=== PATIENT | female | born 1990 | race Caucasian/White ===

== ENCOUNTER 2019-09-07 01:02 | Emergency (ER) | payer MEDICAID, SELFPAY ==
[2019-09-07 01:08] VITALS: BP 126/79; PULSE 108; RESP 18; TEMP 37.1; O2SAT 100; BMI 35.4
--- NOTE | 2019-09-07 01:28 | ED_ITS ---
Entered by Lisbeth Alberts, acting as scribe for Estrada Head MD Sep 07, 2019 01:02 HPI - Extremity Problem General: Chief complaint: Extremity Problem,Nontraumatic Stated complaint: swollen left foot Time Seen by Provider: 09/07/19 01:22 Source: patient Mode of arrival: ambulatory History of Present Illness: HPI Narrative: 29 y/o female presents to the ED with complaint of left lower extremity pain. Pt states she had surgery to repair a broken bone in 2014. She started having pain and swelling today. The pt has notable edema, redness and tenderness. The extremity is warm to the touch. She states she does not wear shoes so she gets pressure ulcers, regularly. MD Complaint: extremity pain and extremity swelling Pain Consistency: constant Location: left and lower extremity Exacerbating factors: weight bearing, walking and palpation Associated symptoms: Reports rash; Deny chest pain Review of Systems Const: Reports: chills; Denies: body aches or change in appetite Eyes: Denies: blurry vision or eye discomfort ENMT: Denies: throat pain or dental pain Card: Denies: chest pain Resp: Denies: shortness of breath GI: Denies: abdominal pain, nausea, vomiting or diarrhea : Denies: painful urination Musc: Denies: neck pain or back pain Skin/Breast: Reports: rash, redness, skin tenderness and skin swelling Neuro: Denies: headache Morris/Lymph: Denies: easy bruising All/Imm: Denies: hives PFSH ED PFSH: Social History Smoking and tobacco status: current every day smoker Female Reproductive History: Date of last menstrual period: 08/10/19 Physical Exam HENMT: COMMON NORMALS: normocephalic and head/scalp atraumatic HEAD & SCALP: normocephalic and atraumatic Eye: COMMON NORMALS: PERRL and EOMs intact bilaterally PUPIL: Yes PERRL Neck/C-Spine: COMMON NORMALS: full ROM and supple Chest: COMMONS NORMALS: inspection of chest normal and palpation of chest normal Resp: COMMON NORMALS: normal respiratory effort, no retractions, no use of accessory muscles and clear to auscultation bilaterally AUSCULTATION: clear to auscultation bilaterally Cardio: COMMON NORMALS: regular rate, regular rhythm and no murmurs RATE: regular rate RHYTHM: regular rhythm GI: COMMON NORMALS: normal to inspection, nondistended, normoactive bowel sounds, soft to palpation, non-tender and no masses PALPATION: Yes soft Extremity: COMMON NORMALS: normal to inspection and full ROM GENERAL: Yes calf tenderness and Yes edema LEFT LOWER EXTREMITY: Yes ankle joint and Yes foot & digits Neuro: COMMON NORMALS: moves all extremities and no focal motor deficits Psych: COMMON NORMALS: mental status grossly normal, thought process normal and cooperative THOUGHT PROCESS: normal thought process Skin: GENERAL SKIN EXAM: dry skin and erythema Course Vital Signs: Vital signs: Vital Signs Temperature 98.7 F 09/07/19 01:08 Pulse Rate 108 H 09/07/19 01:08 Respiratory Rate 18 09/07/19 01:08 Blood Pressure 126/79 09/07/19 01:08 Pulse Oximetry 100 09/07/19 01:08 MDM - Extremity (Nontraumatic) MDM Narrative: Medical decision making narrative: Patient presents here with foot pain. She does have some slight swelling and erythema to her foot with possible cellulitis. Patient denies stepping on any objects or having any foreign bodies. We will start her on Keflex and she is to follow-up with primary care doctor. Lab Data: Labs: Lab Results 09/07/19 Range/Units 01:45 WBC 6.6 (4.0-10.0) 10^3/ uL RBC 5.17 (4.1-5.3) 10^6/u L Hgb 14.5 (11.5-15.3) g/dL Hct 43.9 (37.0-47.0) % MCV 84.9 (81-99) fL MCH 28.0 (28.0-34.0) pg MCHC 33.0 (30.0-36.0) g/dL RDW 14.6 (12.1-15.1) % Plt Count 219 (130-400) 10^3/c mm MPV 10.3 (7.4-10.4) fL Neut % (Auto) 71.6 % Lymph % (Auto) 12.7 % [place] % (Auto) 12.2 % Eos % (Auto) 2.7 % Baso % (Auto) 0.5 % Neut # (Auto) 4.7 (1.8-7.7) 10^3/u L Lymph # (Auto) 0.8 (0.8-4.8) 10^3/u L [place] # (Auto) 0.8 (0.2-0.9) 10^3/u L Eos # (Auto) 0.2 (0.0-0.8) 10^3/u L Baso # (Auto) 0.0 (0.0-0.1) 10^3/u L Nucleated RBC % (a uto) 0 % Nucleated RBCs # 0.0 /100WBC Imaging Data^: left foot xr: Attestation: I personally reviewed and interpreted this imaging study as follows: My impression: XRay Report Signed Patient: Patriica Hernandez Unit #: [id number] : 1990 Age/Sex: 29 / F ADM Date: 09/07/19 Loc: ER Room/Bed: Attending Dr: Ordering Provider/Ordering MD: Estrada Head MD Date of Service: 09/07/19 Procedure(s): XR foot LT min 3V* [id number] Accession Number(s): [id number] Report Number: [id number] PROCEDURE INFORMATION: Exam: XR Left Foot Complete Exam date and time: 09/07/2019 1:52 AM Age: 29 years old Clinical indication: Edema; No, it is generalized; Prior surgery; Surgery date: 6+ months; Additional info: Injury TECHNIQUE: Imaging protocol: XR Left foot. Views: 3 or more views. COMPARISON: No relevant prior studies available. FINDINGS: Bones/joints: No acute bony findings. Hardware is in place in the visualized tibia. Soft tissues: Subcutaneous edema/soft tissue swelling noted dorsally. A 5 mm x 0.6 mm radio opacity suggested at the soft tissues of lateral plantar aspect raises consideration of foreign body that can be correlated with any history of penetrating injury. XR/XR foot LT min 3V* [id number] IMPRESSION: Soft tissue swelling/subcutaneous edema. No acute bony findings. Findings raising consideration of foreign body at lateral plantar soft tissues that can be correlated as above. Discharge Plan Discharge Patient Disposition: Home, Self-Care Clinical Impression: Cellulitis of left foot Condition: Stable Prescriptions: New Keflex 500 mg capsule 500 mg PO Q6H 7 Days Qty: 28 RF: 0 EC-Naprosyn 500 mg tablet,delayed release (/EC) 500 mg PO BID PRN (Reason: pain) Qty: 20 RF: 0 Discharge Orders: Discharge Order (Routine); Ordered 09/07/19 Ordered By: Estrada Head Discharge Diet: Advance as tolerated Discharge Activity: Resume usual activity Patient Instructions: Cellulitis (ED) Coding Level of Care Code ED Pit Supervisor for Chg Fwd Exam Comprehensive The documentation recorded by the Aristeo altamirano Ashley, accurately reflects the service I personally performed and the decisions made by Sonido rivera Korby, MD Sep 07, 2019 01:02
--- NOTE | 2019-09-07 01:38 | XRR_ITS ---
PROCEDURE INFORMATION: Exam: XR Left Foot Complete Exam date and time: 09/07/2019 1:52 AM Age: 29 years old Clinical indication: Edema; No, it is generalized; Prior surgery; Surgery date: 6+ months; Additional info: Injury TECHNIQUE: Imaging protocol: XR Left foot. Views: 3 or more views. COMPARISON: No relevant prior studies available. FINDINGS: Bones/joints: No acute bony findings. Hardware is in place in the visualized tibia. Soft tissues: Subcutaneous edema/soft tissue swelling noted dorsally. A 5 mm x 0.6 mm radio opacity suggested at the soft tissues of lateral plantar aspect raises consideration of foreign body that can be correlated with any history of penetrating injury. XR/XR foot LT min 3V* [id number] IMPRESSION: Soft tissue swelling/subcutaneous edema. No acute bony findings. Findings raising consideration of foreign body at lateral plantar soft tissues that can be correlated as above.
[2019-09-07 01:49] LABS: Basophils % 0.5 %; Eosinophils # 0.2 10^3/uL (0.0-0.8); Eosinophils % 2.7 %; Hematocrit 43.9 % (37.0-47.0); Hemoglobin 14.5 g/dL (11.5-15.3); Lymphocytes # 0.8 10^3/uL (0.8-4.8); Lymphocytes % 12.7 %; Mean Corpuscular Volume 84.9 fL (81-99); Mean Platelet Volume 10.3 fL (7.4-10.4); Monocytes # 0.8 10^3/uL (0.2-0.9); Monocytes % 12.2 %; Neutrophils # 4.7 10^3/uL (1.8-7.7); Neutrophils % 71.6 %; Nucleated Red Blood Cells % 0 %; Platelet Count 219 10^3/cmm (130-400); Red Blood Count 5.17 10^6/uL (4.1-5.3); Red Cell Distribution Width 14.6 % (12.1-15.1); White Blood Count 6.6 10^3/uL (4.0-10.0)
[2019-09-07] MEDS: HYDROcodone-acetaminophen 7.5-325 mg Tablet 1 TAB PO (03:03)
--- NOTE | 2019-09-07 04:00 | PC.NURSE ---
assessment reviewed and agree
== END 2019-09-07 04:01 | disposition home or self-care (01) ==
PROVIDERS: Emergency Provider Emergency Medicine
DX: L03.116 Cellulitis of left lower limb (principal); F17.200 Nicotine dependence, unspecified, uncomplicated
CPT/HCPCS: 36415; 73630; 85025; 99281; 99283

== ENCOUNTER 2019-09-08 22:34 | Emergency (ER) | payer MEDICAID, SELFPAY ==
--- NOTE | 2019-09-08 22:35 | XR_ITS ---
WS: [id number] XR foot LT min 3V* [id number] REASON FOR EXAM: injury FINDINGS: The phalanges, metatarsals and tarsals show no definite fractures or other dyscrasias. There is postop changes with a plate and multiple screws through the tibia. The lateral projection the calcaneus was normal. No displacement normal appearance of the foot. XR/XR foot LT min 3V* [id number] IMPRESSION: Negative foot for active pathology.
[2019-09-08 23:10] VITALS: BP 141/88; PULSE 102; RESP 16; TEMP 36.9; O2SAT 100; BMI 35.4
[2019-09-09 00:17] VITALS: PULSE 86
--- NOTE | 2019-09-09 00:24 | ED_ITS ---
Entered by Lisbeth Alberts, acting as scribe for Estrada Head MD Sep 08, 2019 22:34 HPI - Extremity Problem General: Chief complaint: Extremity Injury, Lower Stated complaint: left foot injury Time Seen by Provider: 09/09/19 00:19 Source: patient and family Mode of arrival: wheelchair History of Present Illness: HPI Narrative: 29 y/o female presents to the ED with complaint of left foot swelling. Pt states she was seen here yesterday for similar symptoms and placed on abx. She is back to day because she has not had any improvement. Pt states she has an old ankle injury/sx repair around the swollen area. Complaint: extremity pain and extremity swelling Onset (ago): day(s) Pain Consistency: constant Location: left and lower extremity Associated symptoms: Reports rash; Deny chest pain or fever(s) Review of Systems Const: Denies: fever, chills, body aches or change in appetite Eyes: Denies: blurry vision or eye discomfort ENMT: Denies: throat pain or dental pain Card: Denies: chest pain Resp: Denies: shortness of breath GI: Denies: abdominal pain, nausea, vomiting or diarrhea : Denies: painful urination Musc: Denies: neck pain or back pain Skin/Breast: Reports: rash and skin swelling Neuro: Reports: difficulty walking; Denies: headache Psych: Denies: depression Morris/Lymph: Denies: easy bruising All/Imm: Denies: hives PFS ED PFSH: Social History Smoking and tobacco status: current every day smoker Female Reproductive History: Date of last menstrual period: 08/10/19 Physical Exam Const: COMMON NORMALS: no apparent distress, oriented x3 and alert HENMT: COMMON NORMALS: normocephalic and head/scalp atraumatic HEAD & SCALP: normocephalic and atraumatic Eye: COMMON NORMALS: PERRL and EOMs intact bilaterally PUPIL: Yes PERRL Neck/C-Spine: COMMON NORMALS: full ROM and supple Chest: COMMONS NORMALS: inspection of chest normal and palpation of chest normal Resp: COMMON NORMALS: normal respiratory effort, no retractions, no use of accessory muscles and clear to auscultation bilaterally AUSCULTATION: clear to auscultation bilaterally Cardio: COMMON NORMALS: regular rate, regular rhythm and no murmurs RATE: regular rate RHYTHM: regular rhythm GI: COMMON NORMALS: normal to inspection, nondistended, normoactive bowel sounds, soft to palpation, non-tender and no masses PALPATION: Yes soft Extremity: GENERAL: Yes edema (LLE +2) OTHER: Pt states she has not feeling in her left foot and cannot move it. This is her normal, due to a childhood injury. The increased swelling is new. Neuro: COMMON NORMALS: oriented x3 SENSORIUM/ORIENTATION: Yes alert Psych: COMMON NORMALS: thought process normal and cooperative THOUGHT PROCESS: normal thought process Course ED course: 003 Pt refused blood draw Vital Signs: Vital signs: Vital Signs Temperature 98.4 F 09/08/19 23:10 Pulse Rate 86 09/09/19 00:17 Respiratory Rate 16 09/08/19 23:10 Blood Pressure 141/88 09/08/19 23:10 Pulse Oximetry 100 09/08/19 23:10 MDM - Extremity (Nontraumatic) MDM Narrative: Medical decision making narrative: Patient presents here with lower leg edema and slight cellulitis. Patient has no signs of worsening cellulitis no signs of osteomyelitis. She has good distal pulses and ultrasound showed no DVT. She is to Edi wrap and elevate her foot. She is continue antibiotics will place on [place]. She is to follow-up with PCP in 3 to 5 days return to ER if worsening. Imaging Data^: us venous doppler left leg: My impression: read from tech no DVT seen Discharge Plan Discharge Patient Disposition: Home, Self-Care Clinical Impression: Cellulitis of left foot, Swelling of left foot Condition: Stable Prescriptions: New [place] 5-325 mg tablet 1 tab PO Q6H PRN (Reason: pain) Qty: 10 RF: 0 No Action cephalexin [Keflex] 500 mg capsule 500 mg PO Q6H 7 Days Qty: 28 RF: 0 naproxen [EC-Naprosyn] 500 mg tablet,delayed release (DR/EC) 500 mg PO BID PRN (Reason: pain) Qty: 20 RF: 0 Discharge Orders: Discharge Order (Routine); Ordered 09/09/19 Ordered By: Estrada Head Discharge Diet: Advance as tolerated Discharge Activity: Resume usual activity Patient Instructions: Cellulitis (ED) Coding Level of Care Code ED Fulling Machine Operator for Chg Fwd Exam Comprehensive The documentation recorded by the scribAristeo schneider Ashley, accurately reflects the service I personally performed and the decisions made by me, Estrada Head MD Sep 08, 2019 22:34
--- NOTE | 2019-09-09 00:26 | USCV_ITS ---
DavidAzam byersley Age: 29 Gender: F : 1990 Exam Date: 09/09/2019 00:25 Ordering Phys: Estrada Head MD Technologist: Brad Dennison Exam Location: [facility] [place] Indication: LT LEG PAIN AND EDEMA HISTORY: Lower extremity swelling. PROCEDURES: Venous duplex imaging was performed in only the left lower extremity. The following venous structures were evaluated: common femoral vein, profunda vein, proximal portion of the greater saphenous vein, superficial femoral vein, and the popliteal vein. In addition, the posterior tibial and peroneal trunk were evaluated. FINDINGS: Normal 2-D Doppler and augmentation and compressibility throughout the lower extremity venous structures. Additional imaging through the proximal calf veins also reveals no thrombus. Limited evaluation of the greater saphenous vein is patent with no thrombus. CONCLUSIONS No DVT left lower extremity. Dr. Benita Skelton DO (Electronically Signed) Final Date: 09 September 2019 09:30 S
[2019-09-09] MEDS: HYDROcodone-acetaminophen 10-325 mg Tablet 1 TAB PO (00:38)
[2019-09-09 00:59] VITALS: BP 123/82; PULSE 86; RESP 18; O2SAT 97
--- NOTE | 2019-09-10 09:38 | DCPLANNER ---
manager community had message to speak with patient about getting established with a primary care physician. manager community called patient at [phone] and a recording stated that the phone number is not reachable.
== END 2019-09-09 00:59 | disposition home or self-care (01) ==
PROVIDERS: Emergency Provider Emergency Medicine
DX: L03.116 Cellulitis of left lower limb (principal); F17.210 Nicotine dependence, cigarettes, uncomplicated
CPT/HCPCS: 12345; 73630; 93971; 99281; 99283

== ENCOUNTER 2019-11-26 16:39 | Emergency (ER) | payer MEDICAID, SELFPAY ==
[2019-11-26 17:31] VITALS: BP 111/74; PULSE 127; RESP 18; TEMP 36.9; O2SAT 92; BMI 35.4
[2019-11-26 18:07] LABS: Basophils % 0.3 %; Eosinophils # 0.1 10^3/uL (0.0-0.8); Eosinophils % 0.9 %; Hematocrit 36.5 % (37.0-47.0); Hemoglobin 11.7 g/dL (11.5-15.3); Lymphocytes % 9.2 %; Mean Corpuscular HGB Conc 32.1 g/dL (30.0-36.0); Mean Corpuscular Volume 84.1 fL (81-99); Mean Platelet Volume 9.4 fL (7.4-10.4); Monocytes # 0.6 10^3/uL (0.2-0.9); Monocytes % 5.6 %; Neutrophils # 9.4 10^3/uL (1.8-7.7); Neutrophils % 83.6 %; Nucleated Red Blood Cells % 0 %; Platelet Count 408 10^3/cmm (130-400); Red Blood Count 4.34 10^6/uL (4.1-5.3); Red Cell Distribution Width 13.6 % (12.1-15.1); White Blood Count 11.2 10^3/uL (4.0-10.0)
[2019-11-26 18:30] LABS: Alanine Aminotransferase 30 U/L (0-33); Albumin Level 3.4 g/dL (3.5-5.2); Alkaline Phosphatase 93 IU/L (35-105); Anion Gap 15.5 (5-19); Aspartate Amino Transferase 32 U/L (0-32); Blood Urea Nitrogen 8 mg/dL (6-20); Calcium 8.3 mg/dL (8.5-10.5); Carbon Dioxide 26 mmol/L (22-29); Chloride 96 mmol/L (98-107); Globulin 4.2 g/dL (1.3-4.6); Glomerular Filtration Rate 116.6 mL/min (90-130); Glucose 106 mg/dL (65-115); Osmolality Calculated 274 mOsm/kg (285-295); Potassium 3.5 mmol/L (3.5-5.1); Sodium 134 mmol/L (136-145); Total Bilirubin 0.4 mg/dL (0.15-1.2); Total Protein 7.6 g/dL (6.6-8.7)
--- NOTE | 2019-11-26 20:10 | W.ED.GENADLT ---
HPI - General Adult General: Chief complaint: General Medical Stated complaint: multiple complaints Time Seen by Provider: 11/26/19 19:51 Source: patient Mode of arrival: ambulatory Limitations: no limitations History of Present Illness: HPI narrative: Patient comes in today for complaints of exacerbation of cellulitis to her left lower extremity. Patient reports for the last year she has had problems with cellulitis to the foot on and off. Patient reports was seen here last in September and was supposed to have follow-up with primary care but never got the appointment. Patient appears well. Patient appears in no acute distress. 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 Patient had old injury to the left ankle which is made the foot pretty well useless . Patient denies any nausea vomiting or high fevers. Review of Systems General: Reports: 10 or more systems reviewed and unremarkable except in HPI and below Musc: Reports: back pain and extremity pain PFSH ED PFSH: Social History Smoking and tobacco status: current every day smoker Female Reproductive History: Date of last menstrual period: 11/05/19 Physical Exam Const: COMMON NORMALS: no acute distress and patient oriented x3 GENERAL APPEARANCE: cooperative HENMT: COMMON NORMALS: normocephalic, TM's normal bilaterally and Normal external nose present HEAD & SCALP: normal to inspection and normocephalic NOSE: Normal external nose present TYMPANIC MEMBRANE: TM's normal bilaterally MOUTH: Normal oral and palatal mucosa present THROAT: posterior oropharynx normal Eye: GENERAL EYE: appearance normal, both eyes and all related structures Neck/C-Spine: COMMON NORMALS: full ROM Lymph: LYMPHATIC: no lymphadenopathy noted Chest: COMMONS NORMALS: normal inspection of the chest Resp: COMMON NORMALS: normal respiratory effort EFFORT & INSPECTION: Yes able to speak in complete sentences Cardio: COMMON NORMALS: regular rate and regular rhythm RATE: regular rate RHYTHM: regular rhythm GI: COMMON NORMALS: non-tender : COMMON NORMALS: Yes no CVA tenderness BLADDER/KIDNEY EXAM: Yes no CVA tenderness Back/Pelvis: COMMON NORMALS: no CVA tenderness and thoracic and lumbar spine normal to inspection Extremity: NARRATIVE EXTREMITY EXAM: Erythema is noted to the left lower extremity extending up to mid calf. Pulses are intact. Patient has slow capillary refill to the lower extremity. Neuro: COMMON NORMALS: patient oriented x3 and moves all extremities Psych: COMMON NORMALS: mental status grossly normal and cooperative Skin: COMMON NORMALS: no rashes or lesions noted GENERAL SKIN EXAM: no rashes or lesions noted Course Vital Signs: Vital signs: Vital Signs Temperature 98.5 F 11/26/19 17:31 Pulse Rate 127 H 11/26/19 17:31 Respiratory Rate 18 11/26/19 17:31 Blood Pressure 111/74 11/26/19 17:31 Pulse Oximetry 92 11/26/19 17:31 MDM - General Adult MDM Narrative: Medical decision making narrative: Patient comes in for complaints of low back pain, cellulitis to the left lower extremity, and some changes in urinary pattern. 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 Exam notes redness and some mild swelling to the left lower extremity. Review of the previous ultrasounds noted no venous occlusion and patient reports that there is no significant change. We will go ahead today and retreat for the cellulitis and hopefully be able to get patient with follow-up appointments for further treatment and evaluation of this apparently chronic condition. Lab Data: Labs: Lab Results 11/26/19 11/26/19 Range/Units 17:53 17:53 WBC 11.2 H (4.0-10.0) 10^3/ uL RBC 4.34 (4.1-5.3) 10^6/u L Hgb 11.7 (11.5-15.3) g/dL Hct 36.5 L (37.0-47.0) % MCV 84.1 (81-99) fL MCH 27.0 L (28.0-34.0) pg MCHC 32.1 (30.0-36.0) g/dL RDW 13.6 (12.1-15.1) % Plt Count 408 H (130-400) 10^3/c mm MPV 9.4 (7.4-10.4) fL Neut % (Auto) 83.6 % Lymph % (Auto) 9.2 % [place] % (Auto) 5.6 % Eos % (Auto) 0.9 % Baso % (Auto) 0.3 % Neut # (Auto) 9.4 H (1.8-7.7) 10^3/u L Lymph # (Auto) 1.0 (0.8-4.8) 10^3/u L [place] # (Auto) 0.6 (0.2-0.9) 10^3/u L Eos # (Auto) 0.1 (0.0-0.8) 10^3/u L Baso # (Auto) 0.0 (0.0-0.1) 10^3/u L Nucleated RBC % (a uto) 0 % Nucleated RBCs # 0.0 /100WBC Sodium 134 L (136-145) mmol/L Potassium 3.5 (3.5-5.1) mmol/L Chloride 96 L (98-107) mmol/L Carbon Dioxide 26 (22-29) mmol/L Anion Gap 15.5 (5-19) BUN 8 (6-20) mg/dL Creatinine 0.6 (0.5-0.9) mg/dL GFR Calculation 116.6 (90-130) mL/min Glucose 106 (65-115) mg/dL Calculated Osmolal ity 274 L (285-295) mOsm/k g Calcium 8.3 L (8.5-10.5) mg/dL Total Bilirubin 0.4 (0.15-1.2) mg/dL AST 32 (0-32) U/L ALT 30 (0-33) U/L Alkaline Phosphata se 93 (35-105) IU/L Total Protein 7.6 (6.6-8.7) g/dL Albumin 3.4 L (3.5-5.2) g/dL Globulin 4.2 (1.3-4.6) g/dL Discharge Plan Discharge Patient Disposition: Home, Self-Care Clinical Impression: Cellulitis Qualifiers: Site of cellulitis: extremity Site of cellulitis of extremity: lower extremity Laterality: left Qualified Code(s): L03.116 - Cellulitis of left lower limb Condition: Stable Prescriptions: New cephalexin 500 mg capsule 500 mg PO QID 10 Days Qty: 40 RF: 0 hydrocodone-acetaminophen 5-325 mg tablet 1 tab PO Q6H PRN (Reason: pain) Qty: 10 RF: 0 naproxen 500 mg tablet 500 mg PO BID Qty: 20 RF: 0 No Action naproxen [EC-Naprosyn] 500 mg tablet,delayed release (DR/EC) 500 mg PO BID PRN (Reason: pain) Qty: 20 RF: 0 [place] 5-325 mg tablet 1 tab PO Q6H PRN (Reason: pain) Qty: 10 RF: 0 Discharge Orders: Discharge Order (Routine); Ordered 11/26/19 Ordered By: Osman Hurtado Discharge Diet: Usual diet Discharge Activity: Increase activity as tolerated Patient Instructions: Cellulitis (ED) Activity Restrictions/Additional Instructions: Activity as tolerated. Try to elevate left extremity as much as possible. Use antibiotics as directed. Drink plenty of water with medications. Return to the ER for worsening symptoms such as high fever or worsening pain. Follow-up with primary care as directed by case management. Contact the ER charge nurse if you have not heard from case planner by Friday next week. Coding Level of Care Code ED Neurodiagnostic Technician for Joao Rodriguez
[2019-11-26] MEDS: HYDROcodone-acetaminophen 7.5-325 mg Tablet 1 TAB PO (20:15)
[2019-11-26] MEDS: ketorolac 30 mg/mL INJ IM (20:16)
[2019-11-26] MEDS: cefTRIAXone 1,000 mg SDV 1000 MG IM (20:19)
[2019-11-26] MEDS: lidocaine 1% INJ 20 mL 2.1 ML IV (20:20)
[2019-11-26 20:39] VITALS: BP 120/78; PULSE 100; RESP 18; O2SAT 98
--- NOTE | 2019-11-30 10:04 | DCPLANNER ---
Addendum entered by Seble Maier 11/30/19 14:46: Patient called called watch caser and stated that she did need a primary care physician. fill manager called the office of Dr. Ayala, spoke with Deyanira, a follow up appointment was scheduled for November at 2:45 with GARMENT MANUFACTURER, Rina Kyle. fill manager called patient and informed patient of the scheduled appointment. Addendum entered by Seble Maier 11/30/19 14:32: Pat from ortho called watch caser and stated that after physician reviewed patients information, that patient is to follow up with primary care physician. If after seeing primary care physician, than patients primary care can refer patient to ortho. Addendum entered by Seble Maier 11/30/19 11:35: fill manager also had a message to speak with patient about getting established with a primary care physician. fill manager called [phone], unable to speak with patient at this time, and unable to leave a voicemail due to no voicemail box set up. Original Note: fill manager had message to schedule a follow up appointment for patient with ortho. fill manager called the ortho clinic, spoke with Pat, gave clinic patients information. fill manager was told that patients information would be printed and reviewed. Clinic will call watch caser and patient with appointment information.
--- NOTE | 2019-12-23 13:59 | DCPLANNER ---
Patient had follow up appointment scheduled for 12.02.19 with WHITE SUGAR SUPERVISOR, Rina Kyle. Patient did attend the appointment.
== END 2019-11-26 20:40 | disposition home or self-care (01) ==
PROVIDERS: Emergency Provider Nurse Practitioner Family
DX: L03.116 Cellulitis of left lower limb (principal); F17.210 Nicotine dependence, cigarettes, uncomplicated
CPT/HCPCS: 12345; 36415; 80053; 85025; 96372; 99281; 99283; J0696; J1885; J2001

== ENCOUNTER → 2019-12-03 11:27 | Outpatient (BNVA) | payer MEDICAID, SELFPAY | PROVIDERS: Visit Provider Nurse Practitioner Family | DX: R82.90 Unspecified abnormal findings in urine (principal); R30.0 Dysuria; M21.372 Foot drop, left foot; L84 Corns and callosities; L03.116 Cellulitis of left lower limb; R29.898 Other symptoms and signs involving the musculoskeletal system; N31.9 Neuromuscular dysfunction of bladder, unspecified; Z98.890 Other specified postprocedural states; R32 Unspecified urinary incontinence; K59.00 Constipation, unspecified; I69.998 Other sequelae following unspecified cerebrovascular disease | CPT/HCPCS: 81000; 81003 ==

== ENCOUNTER → 2020-01-03 10:00 | Outpatient (BNVA) | payer MEDICAID, SELFPAY | PROVIDERS: Visit Provider Nurse Practitioner Family | DX: Z11.3 Encounter for screening for infections with a predominantly sexual mode of transmission (principal); T63.301A Toxic effect of unspecified spider venom, accidental (unintentional), initial encounter; L84 Corns and callosities; X58.XXXA Exposure to other specified factors, initial encounter | CPT/HCPCS: 87491; 87591; 87661 ==

== ENCOUNTER → 2020-01-18 15:31 | Outpatient (BNVA) | payer MEDICAID, SELFPAY | PROVIDERS: Visit Provider Podiatrist Foot & Ankle Surgery | DX: L97.522 Non-pressure chronic ulcer of other part of left foot with fat layer exposed (principal); M21.372 Foot drop, left foot; G62.9 Polyneuropathy, unspecified | CPT/HCPCS: 73630 ==

== ENCOUNTER 2020-01-18 16:48 | Outpatient (CLI) | payer MEDICAID, SELFPAY | END 2020-01-18 16:49 | disposition home or self-care (01) | LOC: SPT 16:49 | PROVIDERS: Visit Provider Podiatrist Foot & Ankle Surgery | DX: Z47.89 Encounter for other orthopedic aftercare (principal); L97.522 Non-pressure chronic ulcer of other part of left foot with fat layer exposed | CPT/HCPCS: 97760; L4361 ==

== ENCOUNTER 2020-03-18 12:03 | Inpatient (IN) | payer MEDICAID, SELFPAY ==
[2020-03-18] VITALS (15 sets, daily range): BP systolic 88–133; BP diastolic 54–94; PULSE 105–138; RESP 13–25; TEMP 37.1–37.4; O2SAT 93–100
--- NOTE | 2020-03-18 12:15 | XRR_ITS ---
PROCEDURE INFORMATION: Exam: XR Left Foot Complete Exam date and time: 03/18/2020 1:02 PM Age: 29 years old Clinical indication: Pain; Foot; Left; Prior surgery; Surgery date: 6+ months; Surgery type: FX; Patient HX: Redness/swelling; Additional info: Great toe cellullitis/pain/? Osteo TECHNIQUE: Imaging protocol: XR Left foot. Views: 3 or more views. COMPARISON: No relevant prior studies available. FINDINGS: Bones/joints: See Soft tissues finding. Soft tissues: Distal foot soft tissue swelling most pronounced great toe. No underlying bony destruction to suggest osteomyelitis. Small 3-4 mm curvilinear density in lateral soft tissues, possible small chronic foreign body. XR/XR foot LT min 3V* [id number] IMPRESSION: Distal foot soft tissue swelling most pronounced great toe. No underlying bony destruction to suggest osteomyelitis.
--- NOTE | 2020-03-18 12:15 | XRR_ITS ---
PROCEDURE INFORMATION: Exam: XR Chest, 1 View Exam date and time: 03/18/2020 1:00 PM Age: 29 years old Clinical indication: Cough and dyspnea; Additional info: Dyspnea/cough TECHNIQUE: Imaging protocol: XR of the chest Views: 1 view. COMPARISON: No relevant prior studies available. FINDINGS: Lungs: Unremarkable. No consolidation. Pleural space: Unremarkable. No pleural effusion. No pneumothorax. Heart/Mediastinum: Unremarkable. No cardiomegaly. Bones/joints: Unremarkable. XR/XR chest 1V portable [id number] IMPRESSION: No acute findings.
--- NOTE | 2020-03-18 12:20 | W.ED.BACK ---
HPI - Back Pain/Injury General: Chief Complaint: Back Pain/Injury Stated Complaint: back pain Time Seen by Provider: 03/18/20 12:11 History of Present Illness: HPI Narrative: 29-year-old female presents complaining of back pain and urinary incontinence was foul-smelling urine shows a low-grade fever additionally she has swelling and pain on her left great toe. She is not had any drainage she has been seeing podiatry for this. It is become more painful and swollen the last couple of days. She denies any respiratory symptoms or any GI symptoms. She reports having had a stroke at 7 years of age which left her with some right-sided residual deficits. She is not on any anticoagulants. MD elicited complaint: back pain Pertinent past history: prior back pain Onset (ago): day(s) Timing: constant Severity: moderate Similar Symptoms Previously: Yes Quality: burning Radiation: none Exacerbating factors: immobilization Relieving factors: none Associated symptoms: Reports arthralgias and weakness; Deny abdominal pain, change in bowel habits, difficulty walking, dysuria, fatigue, fecal incontinence, fever(s), hematuria, myalgias, nausea, numbness, syncope, tingling/numbness/burning, urinary frequency, urinary urgency or vomiting Review of Systems Const: Denies: fever(s) or fatigue ENMT: Denies: throat pain, ear or mastoid pain, nasal discharge or nasal congestion Card: Denies: syncope Resp: Denies: dyspnea, productive cough or non-productive cough GI: Denies: abdominal pain, nausea, vomiting, fecal incontinence or change in bowel habits : Denies: dysuria, urinary urgency or hematuria Skin/Breast: Denies: rash or pruritus Neuro: Denies: difficulty walking PFSH ED PFSH: Medical History Foot drop, left 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 Patient is non-compliant with historical brace use. History of CVA (cerebrovascular accident) At age of 7. Recent surgical procedure on lower extremity 2014 Urinary incontinence Surgical History S/P ORIF (open reduction internal fixation) fracture Social History (Reviewed 03/18/20 @ 18:07 by ASHLEY Kang Smoking and tobacco status: current every day smoker Alcohol intake: never Counseling given: Yes Last substance use date: 03/13/20 Other details last substance use: Reports were injecting in the arms, shares needles with her boyfriend who was recently diagnosed with hepatitis C. Lives independently: Yes Household members: family Marital status: Single Current occupational status: unemployed and other Female Reproductive History: Date of last menstrual period: 11/05/19 Physical Exam Const: COMMON NORMALS: no acute distress GENERAL APPEARANCE: cooperative and comfortable ORIENTATION/CONSCIOUSNESS: Yes awake, Yes oriented to person, Yes oriented to place and Yes oriented to time HENMT: COMMON NORMALS: normocephalic, atraumatic and hearing grossly normal bilaterally HEAD & SCALP: normocephalic and atraumatic Eye: COMMON NORMALS: Equal, round and reactive pupils present, EOMs intact bilaterally, conjunctivae normal and no scleral icterus CONJUNCTIVA: Yes conjunctivae normal PUPIL: Yes Equal, round and reactive pupils present Neck/C-Spine: COMMON NORMALS: full ROM, no lymphadenopathy, supple and no JVD Lymph: LYMPHATIC: no lymphadenopathy noted and no lymphedema noted Resp: COMMON NORMALS: normal respiratory effort, No retractions, No use of accessory muscles and clear to auscultation bilaterally AUSCULTATION: clear to auscultation bilaterally Cardio: COMMON NORMALS: no JVD, regular rate, regular rhythm and No murmurs present (Cardio) RATE: regular rate RHYTHM: regular rhythm GI: COMMON NORMALS: Soft to palpation and No hepatosplenomegaly present AUSCULTATION: Yes normoactive bowel sounds PALPATION: Yes Soft to palpation, No Tenderness to palpation present (GI), No Guarding due to palpation present (GI) and Yes No hepatosplenomegaly present Extremity: NARRATIVE EXTREMITY EXAM: Right great toe inflamed swollen soft tissue edema no active drainage from open lesion. X-ray does not show any osteomyelitis. Neuro: SENSORIUM/ORIENTATION: Yes oriented to person, Yes oriented to place and Yes oriented to time Course Vital Signs: Vital signs: Vital Signs Temperature 98.2 F 03/21/20 04:00 Pulse Rate 83 03/21/20 04:00 Respiratory Rate 18 03/21/20 04:00 Blood Pressure 110/77 03/21/20 04:00 Pulse Oximetry 98 03/21/20 04:00 MDM - Back Pain/Injury MDM Narrative: Medical decision making narrative: Admit for cellulitis of the left great toe ex parte given vancomycin discussed with Dr. Dolan orders written she also has a cystitis. We talked about discharging home and I do not think it safe at this point she has an elevated white count with a left shift. Lactic acid is normal she is somewhat tachycardic is improved with fluids but still mildly tachycardic. Lab Data: Labs: Lab Results 03/18/20 03/18/20 03/18/20 Range/Units 12:40 12:40 12:40 WBC 11.9 H (4.0-10.0) 10^3/ uL RBC 4.93 (4.1-5.3) 10^6/u L Hgb 13.9 (11.5-15.3) g/dL Hct 40.4 (37.0-47.0) % MCV 81.9 (81-99) fL MCH 28.2 (28.0-34.0) pg MCHC 34.4 (30.0-36.0) g/dL RDW 14.6 (12.1-15.1) % Plt Count 181 (130-400) 10^3/c mm MPV 10.7 H (7.4-10.4) fL Neut % (Auto) 91.9 % Lymph % (Auto) 2.5 % [place] % (Auto) 4.2 % Eos % (Auto) 0.3 % Baso % (Auto) 0.4 % Neut # (Auto) 10.89 H (1.8-7.7) 10^3/u L Lymph # (Auto) 0.3 L (0.8-4.8) 10^3/u L [place] # (Auto) 0.5 (0.2-0.9) 10^3/u L Eos # (Auto) 0.0 (0.0-0.8) 10^3/u L Baso # (Auto) 0.1 (0.0-0.1) 10^3/u L Nucleated RBC % (a uto) 0 % Nucleated RBCs # 0.0 /100WBC Sodium 128 L (136-145) mmol/L Potassium 3.7 (3.5-5.1) mmol/L Chloride 94 L (98-107) mmol/L Carbon Dioxide 20 L (22-29) mmol/L Anion Gap 17.7 (5-19) BUN 8 (6-20) mg/dL Creatinine 0.6 (0.5-0.9) mg/dL GFR Calculation 116.6 (90-130) mL/min Glucose 105 (65-115) mg/dL Calculated Osmolal ity 262 L (285-295) mOsm/k g Lactic Acid (0.5-2.2) mmol/L Calcium 8.8 (8.5-10.5) mg/dL Total Bilirubin 1.0 (0.15-1.2) mg/dL AST 58 H (0-32) U/L ALT 61 H (0-33) U/L Alkaline Phosphata se 81 (35-105) IU/L C-Reactive Protein (0.0-4.9) mg/L Total Protein 7.7 (6.6-8.7) g/dL Albumin 3.7 (3.5-5.2) g/dL Globulin 4.0 (1.3-4.6) g/dL HCG, Qual Negative (Negative) Urine Color (Yellow) Urine Appearance (CLEAR) Urine pH (5-7) Ur Specific Gravit y (1.005-1.030) Urine Protein (Negative) Urine Glucose (UA) (Normal) Urine Ketones (Negative) Urine Blood (Negative) Urine Nitrate (Negative) Urine Bilirubin (Negative) Urine Urobilinogen (Negative) mg/dL Ur Leukocyte Lauren ase (Negative) Urine RBC (0-2) /hpf Urine WBC (0-5) /hpf Ur Squamous Epith Cells (0-5) /hpf Amorphous Sediment Urine Bacteria (NONE) /hpf Hepatitis A IgM Ab (Nonreactive) Hep Bs Antigen (Nonreactive) Hep B Core IgM Ab (Nonreactive) Hepatitis C Antibo dy (Nonreactive) HIV 1&2 Ab & HIV 1 Ag (Non-Reactiv) HIV 1&2 Antibody (Non-Reactiv) 03/18/20 03/18/20 03/18/20 Range/Units 12:40 12:40 12:40 WBC (4.0-10.0) 10^3/ uL RBC (4.1-5.3) 10^6/u L Hgb (11.5-15.3) g/dL Hct (37.0-47.0) % MCV (81-99) fL MCH (28.0-34.0) pg MCHC (30.0-36.0) g/dL RDW (12.1-15.1) % Plt Count (130-400) 10^3/c mm MPV (7.4-10.4) fL Neut % (Auto) % Lymph % (Auto) % [place] % (Auto) % Eos % (Auto) % Baso % (Auto) % Neut # (Auto) (1.8-7.7) 10^3/u L Lymph # (Auto) (0.8-4.8) 10^3/u L [place] # (Auto) (0.2-0.9) 10^3/u L Eos # (Auto) (0.0-0.8) 10^3/u L Baso # (Auto) (0.0-0.1) 10^3/u L Nucleated RBC % (a uto) % Nucleated RBCs # /100WBC Sodium (136-145) mmol/L Potassium (3.5-5.1) mmol/L Chloride (98-107) mmol/L Carbon Dioxide (22-29) mmol/L Anion Gap (5-19) BUN (6-20) mg/dL Creatinine (0.5-0.9) mg/dL GFR Calculation (90-130) mL/min Glucose (65-115) mg/dL Calculated Osmolal ity (285-295) mOsm/k g Lactic Acid 1.5 (0.5-2.2) mmol/L Calcium (8.5-10.5) mg/dL Total Bilirubin (0.15-1.2) mg/dL AST (0-32) U/L ALT (0-33) U/L Alkaline Phosphata se (35-105) IU/L C-Reactive Protein 41.3 H (0.0-4.9) mg/L Total Protein (6.6-8.7) g/dL Albumin (3.5-5.2) g/dL Globulin (1.3-4.6) g/dL HCG, Qual (Negative) Urine Color (Yellow) Urine Appearance (CLEAR) Urine pH (5-7) Ur Specific Gravit y (1.005-1.030) Urine Protein (Negative) Urine Glucose (UA) (Normal) Urine Ketones (Negative) Urine Blood (Negative) Urine Nitrate (Negative) Urine Bilirubin (Negative) Urine Urobilinogen (Negative) mg/dL Ur Leukocyte Lauren ase (Negative) Urine RBC (0-2) /hpf Urine WBC (0-5) /hpf Ur Squamous Epith Cells (0-5) /hpf Amorphous Sediment Urine Bacteria (NONE) /hpf Hepatitis A IgM Ab (Nonreactive) Hep Bs Antigen (Nonreactive) Hep B Core IgM Ab (Nonreactive) Hepatitis C Antibo dy (Nonreactive) HIV 1&2 Ab & HIV 1 Ag Non-reactive (Non-Reactiv) HIV 1&2 Antibody Non-reactive (Non-Reactiv) 03/18/20 03/18/20 Range/Units 12:40 14:55 WBC (4.0-10.0) 10^3/ uL RBC (4.1-5.3) 10^6/u L Hgb (11.5-15.3) g/dL Hct (37.0-47.0) % MCV (81-99) fL MCH (28.0-34.0) pg MCHC (30.0-36.0) g/dL RDW (12.1-15.1) % Plt Count (130-400) 10^3/c mm MPV (7.4-10.4) fL Neut % (Auto) % Lymph % (Auto) % [place] % (Auto) % Eos % (Auto) % Baso % (Auto) % Neut # (Auto) (1.8-7.7) 10^3/u L Lymph # (Auto) (0.8-4.8) 10^3/u L [place] # (Auto) (0.2-0.9) 10^3/u L Eos # (Auto) (0.0-0.8) 10^3/u L Baso # (Auto) (0.0-0.1) 10^3/u L Nucleated RBC % (a uto) % Nucleated RBCs # /100WBC Sodium (136-145) mmol/L Potassium (3.5-5.1) mmol/L Chloride (98-107) mmol/L Carbon Dioxide (22-29) mmol/L Anion Gap (5-19) BUN (6-20) mg/dL Creatinine (0.5-0.9) mg/dL GFR Calculation (90-130) mL/min Glucose (65-115) mg/dL Calculated Osmolal ity (285-295) mOsm/k g Lactic Acid (0.5-2.2) mmol/L Calcium (8.5-10.5) mg/dL Total Bilirubin (0.15-1.2) mg/dL AST (0-32) U/L ALT (0-33) U/L Alkaline Phosphata se (35-105) IU/L C-Reactive Protein (0.0-4.9) mg/L Total Protein (6.6-8.7) g/dL Albumin (3.5-5.2) g/dL Globulin (1.3-4.6) g/dL HCG, Qual (Negative) Urine Color Dark yellow (Yellow) Urine Appearance Clear (CLEAR) Urine pH 5 (5-7) Ur Specific Gravit y 1.015 (1.005-1.030) Urine Protein Neg (Negative) Urine Glucose (UA) Norm (Normal) Urine Ketones Negative (Negative) Urine Blood 2+ H (Negative) Urine Nitrate Positive H (Negative) Urine Bilirubin 1+ H (Negative) Urine Urobilinogen Norm (Negative) mg/dL Ur Leukocyte Lauren ase Negative (Negative) Urine RBC 0-4 H (0-2) /hpf Urine WBC 0-4 H (0-5) /hpf Ur Squamous Epith Cells 5-10 H (0-5) /hpf Amorphous Sediment Not Reportable Urine Bacteria 2+ H (NONE) /hpf Hepatitis A IgM Ab Non-reactive (Nonreactive) Hep Bs Antigen Non-reactive (Nonreactive) Hep B Core IgM Ab Non-reactive (Nonreactive) Hepatitis C Antibo dy Reactive H (Nonreactive) HIV 1&2 Ab & HIV 1 Ag (Non-Reactiv) HIV 1&2 Antibody (Non-Reactiv) Discharge Plan Discharge Patient Disposition: Admitted As Inpatient Admit Provider: David Dolan Clinical Impression: Cellulitis of left foot, UTI (urinary tract infection) Condition: Stable Referrals: Florencia Kyle APRN [Primary Care Provider] - 03/21/20 1:00 pm Discharge Diet: Usual diet Discharge Activity: Increase activity as tolerated Patient Instructions: Cellulitis, Nitrofurantoin Combination (By mouth), How to Stop Smoking (DC), Methamphetamine Abuse (DC) Discharge Date/Time: 03/18/20 16:46 Coding Level of Care Code ED Credit Risk Manager for Joao Fwd Exam Comprehensive
[2020-03-18] MEDS: sodium chlor 0.9% + KCl 20 mEq 20 MEQ/1,000 ML BAG 125 MEQ IV (12:30)
[2020-03-18] MEDS: ondansetron 2 mg/ML SDV 2 mL 4 MG IVP (12:30)
[2020-03-18 12:56] LABS: Basophils # 0.1 10^3/uL (0.0-0.1); Basophils % 0.4 %; Eosinophils % 0.3 %; Hematocrit 40.4 % (37.0-47.0); Hemoglobin 13.9 g/dL (11.5-15.3); Lymphocytes # 0.3 10^3/uL (0.8-4.8); Lymphocytes % 2.5 %; Mean Corpuscular HGB Conc 34.4 g/dL (30.0-36.0); Mean Corpuscular Hemoglobin 28.2 pg (28.0-34.0); Mean Corpuscular Volume 81.9 fL (81-99); Mean Platelet Volume 10.7 fL (7.4-10.4); Monocytes # 0.5 10^3/uL (0.2-0.9); Monocytes % 4.2 %; Neutrophils # 10.89 10^3/uL (1.8-7.7); Neutrophils % 91.9 %; Nucleated Red Blood Cells % 0 %; Platelet Count 181 10^3/cmm (130-400); Red Blood Count 4.93 10^6/uL (4.1-5.3); Red Cell Distribution Width 14.6 % (12.1-15.1); White Blood Count 11.9 10^3/uL (4.0-10.0)
--- NOTE | 2020-03-18 13:04 | PC.NURSE ---
Read and agree with assessment
[2020-03-18 13:14] LABS: HCG, Serum Qual Negative (Negative)
[2020-03-18 13:24] LABS: Alanine Aminotransferase 61 U/L (0-33); Albumin Level 3.7 g/dL (3.5-5.2); Alkaline Phosphatase 81 IU/L (35-105); Blood Urea Nitrogen 8 mg/dL (6-20); Calcium 8.8 mg/dL (8.5-10.5); Carbon Dioxide 20 mmol/L (22-29); Chloride 94 mmol/L (98-107); Glomerular Filtration Rate 116.6 mL/min (90-130); Glucose 105 mg/dL (65-115); Osmolality Calculated 262 mOsm/kg (285-295); Sodium 128 mmol/L (136-145); Total Protein 7.7 g/dL (6.6-8.7)
[2020-03-18 13:26] LABS: Anion Gap 17.7 (5-19); Aspartate Amino Transferase 58 U/L (0-32); Potassium 3.7 mmol/L (3.5-5.1)
[2020-03-18] MEDS: HYDROcodone-acetaminophen 5-325 mg Tablet 1 TAB PO (14:47)
[2020-03-18] MEDS: vancomycin 1,000 MG in sodium chloride 0.9% 250 ML 250 MG IV (14:47)
[2020-03-18 15:19] LABS: Urine Appearance Clear (CLEAR); Urine Color Dark Yellow (Yellow)
[2020-03-18 15:20] LABS: Add Urine Microscopic? YES; Bacteria Urine 2+ /hpf; Bilirubin Urine 1+ (Negative); Blood Urine 2+ (Negative); Glucose Urine UA Norm (Normal); Ketones Urine Negative (Negative); Leukocyte Esterase Urine Negative (Negative); Nitrate Urine Positive (Negative); Protein Urine Neg (Negative); RBC Urine 0-4 /hpf (0-2); Specific Gravity, Urine 1.015 (1.005-1.030); Urobilinogen Urine Norm (Negative); WBC Urine 0-4 /hpf (0-5); pH Urine 5 (5-7)
[2020-03-18 15:21] LABS: Add Urine Culture? Yes
[2020-03-18 16:30] LABS: C Reactive Protein 41.3 mg/L (0.0-4.9)
[2020-03-18 16:33] LABS: Lactic Sepsis W/Reflex 1.5 mmol/L (0.5-2.2)
--- NOTE | 2020-03-18 17:49 | PM.HP ---
Providers/Chief Complaint Admitting Physician: David Dolan Primary Care Provider: Florencia Kyle APRN Chief Complaint: back pain History of Present Illness Patricia Hernandez is a 29 year old lady with reported impaired glucose tolerance, IV drug abuse, current smoker, urinary incontinence, previously following up with Dr. 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 Since September 2019 has had a chronically ulcerated callus on left great toe. She says she does not wear her brace the way she is supposed to, and frequently walks barefoot. She has been following up with podiatry and reports they have had plans to potentially remove left leg hardware, but only after a knee wounds have healed. I see that she had debridement of the callus in January in the office. Dressings with bacitracin were recommended. As well as offloading with cam boot. She reports that she did not change her dressings as she was instructed. Nor has she worn the boot. In ER she presents due to swelling of the distal left foot, and left great toe, erythema, as well as malaise, feeling warm/subjective fevers, is found to have leukocytosis of 11.9, tachycardia of 111. Temp 99.3. CRP 41.3. X-ray of the left foot shows soft tissue edema, most pronounced in a great toe. No underlying bony destruction to suggest osteomyelitis is seen on x-ray. Also noted hyponatremia 128, minimal elevation AST and ALT. She is also noted to have 0-4 WBCs in urine, positive nitrite, bacteria in the urine. She received a dose of vancomycin, 1 L bolus of fluid, and pain and nausea medication. Review of Systems Const: Denies: fever(s), chills, body aches or malaise Eyes: Denies: change in vision or eye redness ENMT: Denies: throat pain, oral sores or ear or mastoid pain Card: Denies: chest pain, edema, pre-syncope or dyspnea on exertion Resp: Denies: dyspnea, productive cough, change in phlegm color or hemoptysis GI: Denies: abdominal pain, nausea, vomiting, diarrhea, constipation, hematochezia or melena : Denies: flank pain, urinary frequency or hematuria Musc: Denies: back pain, joint swelling or joint redness Skin/Breast: Denies: rash, sores or new lesions Neuro: Denies: headache(s), numbness in extremities, weakness in extremities, dizziness, confusion or seizure-like activity Endo: Denies: polyuria or polydipsia Morris/Lymph: Denies: easy bleeding or purpura All/Imm: Denies: urticaria, throat swelling or tongue swelling Medications/Allergies Home Medications Medication Instructions Recorded Confirmed Last Taken Type nitrofurantoin monohyd/m-cryst 100 mg PO BID 7 Days #14 cap 03/18/20 Unknown Rx [Macrobid] Allergies Allergy/AdvReac Type Severity Reaction Status Date / Time No Known Allergies Allergy Verified 03/18/20 12:53 PFSH Acute PFSH: Medical History Foot drop, left 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 Patient is non-compliant with historical brace use. History of CVA (cerebrovascular accident) At age of 7. Recent surgical procedure on lower extremity 2014 Urinary incontinence Surgical History S/P ORIF (open reduction internal fixation) fracture Social History Smoking and tobacco status: current every day smoker Alcohol intake: never Substance/Drug Use: current Substance/Drug use frequency: few times a week Substance/Drug use type: IV Drugs and Methamphetamine Other substance/drug use details: Reports IV use previously, then states quit for a while, but picked up again about 1-2 weeks. Counseling given: Yes Last substance use date: 03/13/20 Other details last substance use: Reports were injecting in the arms, shares needles with her boyfriend who was recently diagnosed with hepatitis C. Lives independently: Yes Household members: family Marital status: Single Current occupational status: unemployed and other Female Reproductive History: Date of last menstrual period: 11/05/19 Vitals/I&O/Wt Last Vital Signs Temp 99.3 F 03/18/20 17:00 Pulse 111 H 03/18/20 17:00 Resp 13 03/18/20 17:00 BP 88/55 03/18/20 17:00 Pulse Ox 99 03/18/20 17:00 Physical Exam Const: COMMON NORMALS: no acute distress and patient oriented x3 ORIENTATION/CONSCIOUSNESS: Yes awake OTHER: Not very comfortable. Appears tired. Rapid speech. HENMT: COMMON NORMALS: oropharynx normal Neck/C-Spine: COMMON NORMALS: no JVD Resp: COMMON NORMALS: normal respiratory effort and clear to auscultation bilaterally AUSCULTATION: clear to auscultation bilaterally Cardio: COMMON NORMALS: no JVD, regular rhythm, S1 normal heart sound present, S2 normal heart sound present and No murmurs present (Cardio) RATE: tachycardic HEART SOUNDS: S1 normal heart sound present and S2 normal heart sound present GI: COMMON NORMALS: Normal to inspection, nondistended, normoactive bowel sounds present, Soft to palpation and non-tender PALPATION: Yes Soft to palpation Extremity: COMMON NORMALS: no joint enlargement and no pedal edema OTHER: Foot drop left lower extremity Neuro: COMMON NORMALS: patient oriented x3 and moves all extremities Skin: RASHES: rashes noted (Erythema, swelling, warmth of the distal left foot, but faint erythema also extending up to about mid morrow circumferentially there is some swelling of left lower extremity compared to the right. Old healed scars of distal LLE.) Data : 03/18/20 12:40 03/18/20 12:40 Micro: Microbiology 03/18/20 12:47 Blood Culture - Preliminary Blood SPECIMEN COLLECTED 03/18/20 12:40 Blood Culture - Preliminary Blood SPECIMEN COLLECTED A&P Assessment and plan (1) Cellulitis of left foot: No obvious/advanced osteomyelitis noted on each foot XR. At this time concern for sepsis with was 11.9, sinus tachycardia 138. Low-grade temperature 99.1. Blood culture. Lactic acid normal. No evidence of sepsis. Antibiotic coverage with vancomycin, Zosyn. Reports so think of erythema of toe left foot has been going on for about a week. Has a chronic callus/small ulceration on the distal plantar left great toe. Would benefit from additional plan for possibility of underlying OM. Status: Acute (2) UTI (urinary tract infection): Urine culture. Alvino. Reports chronic urinary incontinence, previously following with urology. But says he stopped follow-up. Were encouraged to resume on discharge. Status: Acute (3) Intravenous drug abuse: Reports methamphetamine injection, last time on Friday. Reports she used to use pretty heavily in the past, (around the time of prior cellulitis her left foot), but later cut down and had to quit. But again started within the last several weeks. Currently I do not see evidence of septic embolization on her skin, mucous membranes, and chest x-ray is clear. Blood culture requested as above. She reports sharing needles with her boyfriend who was recently diagnosed with hep C. Discussed with her we will check acute hepatitis panel and HIV. She understands the dangers of methamphetamine use, says he understands that she needs to stop. Has considered rehabilitation previously. Status: Acute (4) Methamphetamine use: Monitor for any signs of withdrawal. Rehabilitation options if she will be willing to when she is feeling little bit better. Status: Acute (5) Smoking addiction: Encourage smoking cessation. Provide nicotine replacement for cravings. Status: Acute Additional A&P Information AST, ALT elevation: 58, 61 respectively. Check hepatitis panel as above. Check limited abdominal ultrasound to exclude any suspicious lesions. Hyponatremia: Received IV hydration. Recheck sodium level. [place] sodium intake diet. History of impaired glucose tolerance: Consistent carbohydrate diet. Attestations Medical Necessity Statement*: Admission over 2 midnights continued versus management of persistent foot cellulitis with possible sepsis, UTI, in the setting of IV drug use. Coding Level of Care Code Acute Nitroglycerin Nitrator Operator Batch for Joao Fwd Exam Comprehensive Diagnoses Cellulitis of left foot L03.116 UTI (urinary tract infection) N39.0 Intravenous drug abuse F19.10 Methamphetamine use F15.10 Smoking addiction F17.200
[2020-03-18] MEDS: lactated ringers 1,000 ML 999 ML IV (20:16)
[2020-03-18 20:21] LABS: HIV 1 & 2 Antigen Non-Reactive (Non-Reactiv)
[2020-03-18 20:22] LABS: HIV 1 & 2 Antibody Non-Reactive (Non-Reactiv)
[2020-03-18 20:30] LABS: Sodium 132 mmol/L (136-145)
[2020-03-18] MEDS: heparin 5,000 unit/mL INJ 1 mL 5000 UNIT SUBCUT (21:57)
[2020-03-18] MEDS: piperacillin-tazobactam 3.375 GM in sodium chloride 0.9% (plus) 50 ML IV (21:57)
[2020-03-18] MEDS: sodium chloride 0.9% 1,000 ML 100 ML IV (22:18)
--- NOTE | 2020-03-18 23:49 | PC.NURSE ---
Patient's heart rate is 115. Patient's nurse been notified.
[2020-03-19 01:10] LABS: Hepatitis A Antibody IgM Non-Reactive (Nonreactive); Hepatitis B Core IgM Non-Reactive (Nonreactive); Hepatitis B Surface Antigen Non-Reactive (Nonreactive); Hepatitis C Virus Antibody Reactive (Nonreactive)
[2020-03-19 04:00] VITALS: BP 96/53; PULSE 109; RESP 17; TEMP 37.2; O2SAT 95
[2020-03-19] MEDS: piperacillin-tazobactam 3.375 GM in sodium chloride 0.9% (plus) 50 ML IV ×3 (04:54→21:53)
[2020-03-19] MEDS: heparin 5,000 unit/mL INJ 1 mL 5000 UNIT SUBCUT ×3 (04:54→21:53)
[2020-03-19 06:19] LABS: Basophils % 0.6 %; Eosinophils % 0.4 %; Hematocrit 33.3 % (37.0-47.0); Hemoglobin 11.1 g/dL (11.5-15.3); Lymphocytes # 0.6 10^3/uL (0.8-4.8); Lymphocytes % 8.4 %; Mean Corpuscular HGB Conc 33.3 g/dL (30.0-36.0); Mean Corpuscular Hemoglobin 28.2 pg (28.0-34.0); Mean Corpuscular Volume 84.5 fL (81-99); Mean Platelet Volume 11.2 fL (7.4-10.4); Monocytes # 0.6 10^3/uL (0.2-0.9); Monocytes % 8.4 %; Neutrophils # 5.73 10^3/uL (1.8-7.7); Neutrophils % 81.8 %; Nucleated Red Blood Cells % 0 %; Platelet Count 123 10^3/cmm (130-400); Red Blood Count 3.94 10^6/uL (4.1-5.3); Red Cell Distribution Width 14.7 % (12.1-15.1)
--- NOTE | 2020-03-19 06:21 | PC.NURSE ---
pt slept well throughout the night. no c/o pain. pt had adequate output, heavily saturating multiple pullups.
[2020-03-19 06:55] LABS: Alanine Aminotransferase 52 U/L (0-33); Albumin Level 2.9 g/dL (3.5-5.2); Alkaline Phosphatase 74 IU/L (35-105); Anion Gap 13.2 (5-19); Aspartate Amino Transferase 54 U/L (0-32); Blood Urea Nitrogen 6 mg/dL (6-20); Carbon Dioxide 23 mmol/L (22-29); Chloride 102 mmol/L (98-107); Globulin 3.5 g/dL (1.3-4.6); Glomerular Filtration Rate 116.6 mL/min (90-130); Glucose 89 mg/dL (65-115); Osmolality Calculated 275 mOsm/kg (285-295); Potassium 3.2 mmol/L (3.5-5.1); Sodium 135 mmol/L (136-145); Total Bilirubin 1.1 mg/dL (0.15-1.2); Total Protein 6.4 g/dL (6.6-8.7)
[2020-03-19 07:33] VITALS: BP 102/69; PULSE 87; RESP 18; TEMP 37.1; O2SAT 98
[2020-03-19] MEDS: sodium chloride 0.9% 1,000 ML 100 ML IV ×2 (08:04→17:42)
[2020-03-19] MEDS: potassium chloride ER 10 mEq Tablet 40 MEQ PO (08:41)
[2020-03-19 11:44] VITALS: BP 106/72; PULSE 88; RESP 18; TEMP 37; O2SAT 98
[2020-03-19 15:45] VITALS: BP 119/77; PULSE 82; RESP 18; TEMP 37; O2SAT 99
--- NOTE | 2020-03-19 18:03 | USR_ITS ---
PROCEDURE INFORMATION: Exam: US Abdomen, Limited; Right Upper Quadrant Exam date and time: 03/19/2020 6:43 AM Age: 29 years old Clinical indication: Abnormal findings; Abnormal lab test; Abnormal function test of other organs/systems; Additional info: Ivd use, abnormal liver parameters TECHNIQUE: Imaging protocol: US abdomen. Real time ultrasound with image documentation. Limited exam focused on the right upper quadrant. COMPARISON: CT abdomen pelvis w con* [id number] 06/25/2014 4:29 PM FINDINGS: Liver: Prominent periportal echoes, without focal hepatic mass. Gallbladder: Cholelithiasis. No gallbladder wall edema or pericholecystic fluid. Technologist reported negative sonographic Brandt sign. Common bile duct: Normal caliber of the incompletely visualized common bile duct measuring 3 mm in diameter. Pancreas: Obscuration of the pancreas by bowel gas. Right kidney: Normal right renal morphology. No hydronephrosis. Inferior vena cava: Unremarkable IVC. US/US abdomen limited [id number] IMPRESSION: Cholelithiasis.
--- NOTE | 2020-03-19 18:10 | USR_ITS ---
PROCEDURE INFORMATION: Exam: US Duplex Left Lower Extremity Veins, Limited Exam date and time: 03/19/2020 6:08 AM Age: 29 years old Clinical indication: Swelling (edema) of limb; Lower extremity, left; Additional info: Assess for dvt TECHNIQUE: Imaging protocol: Real-time Duplex ultrasound of the Left Lower Extremity with 2-D young scale, color Doppler flow and spectral waveform analysis with image documentation. Limited exam focused on the left lower extremity veins. COMPARISON: No relevant prior studies available. FINDINGS: Left deep veins: No deep venous thrombosis in the visualized left common femoral, superficial femoral, profunda femoris, popliteal, posterior tibial, or peroneal veins. Left superficial veins: Unremarkable. Saphenofemoral junction is patent without thrombus. Soft tissues: Unremarkable. Lymph nodes: Fatty replaced left inguinal lymph nodes. US/CV venous duplex [facility] [id number] IMPRESSION: No deep venous thrombosis in the visualized left lower extremity.
[2020-03-19 20:00] VITALS: BP 114/78; PULSE 78; RESP 18; TEMP 36.8; O2SAT 96
--- NOTE | 2020-03-19 20:10 | PM.PN ---
Subjective Subjective: Interval history: She is feeling better. She states that she is always somnolent, and that otherwise currently is very closer to her usual self. Malaise has improved. Vitals/I&O/Wt Last Vital Signs Temp 98.6 F 03/19/20 15:45 Pulse 82 03/19/20 15:45 Resp 18 03/19/20 15:45 BP 119/77 03/19/20 15:45 Pulse Ox 99 03/19/20 15:45 03/19/20 03/19/20 03/19/20 06:59 14:59 22:59 Intake Total 450 / 450 2346.667 / 2346.667 1683.333 / 4030.000 Output Total 850 / 850 Balance 450 / 100 1496.667 / 1732.130 3303.333 / 3180.000 Weight last 48 hrs Weight 106.226 kg Weight 107.411 kg Physical Exam Const: COMMON NORMALS: no acute distress and patient oriented x3 ORIENTATION/CONSCIOUSNESS: Yes awake OTHER: Appears comfortable. Napping. Wakes up easily. HENMT: COMMON NORMALS: oropharynx normal Neck/C-Spine: COMMON NORMALS: no JVD Resp: COMMON NORMALS: normal respiratory effort and clear to auscultation bilaterally AUSCULTATION: clear to auscultation bilaterally Cardio: COMMON NORMALS: no JVD, regular rhythm, S1 normal heart sound present, S2 normal heart sound present and No murmurs present (Cardio) RATE: tachycardic RHYTHM: regular rhythm HEART SOUNDS: S1 normal heart sound present and S2 normal heart sound present GI: COMMON NORMALS: Normal to inspection, nondistended, normoactive bowel sounds present, Soft to palpation and non-tender PALPATION: Yes Soft to palpation Extremity: COMMON NORMALS: no joint enlargement and no pedal edema OTHER: Foot drop left lower extremity Neuro: COMMON NORMALS: patient oriented x3 and moves all extremities Skin: RASHES: rashes noted (Improvement in erythema, swelling, warmth of the distal left foot, but faint erythema also extending up to about mid morrow circumferentially there is some swelling of left lower extremity compared to the right. Old healed scars of distal LLE.) and other (There is no extension past demarcation borders. Erythema is more faint today. Swelling with some small amount of improvement. Callus with black center/ulceration without any drainage at distal plantar large toe.) Data : 03/19/20 05:02 03/19/20 05:02 Micro: Microbiology 03/18/20 12:47 Blood Culture - Preliminary Blood NEGATIVE TO DATE 03/18/20 12:40 Blood Culture - Preliminary Blood NEGATIVE TO DATE 03/18/20 14:55 Urine Culture - Preliminary Urine,Clean Catch Gram Negative Rods A&P Assessment and plan (1) Cellulitis of left foot: Showing some improvement. Sepsis resolved. With MRI to exclude underlying deeper sections/osteomyelitis. Blood culture. Lactic acid normal. Antibiotic coverage with vancomycin, Zosyn. Reports so think of erythema of toe left foot has been going on for about a week. Has a chronic callus/small ulceration on the distal plantar left great toe. No DVT seen on venous duplex. Status: Acute (2) UTI (urinary tract infection): Gram-negative rods in urine culture. Zosyn. Reports chronic urinary incontinence, previously following with urology. But says he stopped follow-up. Were encouraged to resume on discharge. Bladder scan PRN. Status: Acute (3) Intravenous drug abuse: Discussed with her hepatitis C antibody positive. She states this is a new finding, but was not surprised. Discussed with her encouraged follow-up for additional assessment and referral for treatment. She is not in sudden drug rehabilitation at this time, but is agreeable to taking formation regarding her rehabilitation. Requested case management consultation. Reports methamphetamine injection, last time on last Friday. Reports she used to use pretty heavily in the past, (around the time of prior cellulitis her left foot), but later cut down and had to quit. But again started within the last several weeks. Currently I do not see evidence of septic embolization on her skin, mucous membranes, and chest x-ray is clear. Blood culture requested as above. She reports sharing needles with her boyfriend who was recently diagnosed with hep C. She understands the dangers of methamphetamine use, says he understands that she needs to stop. Has considered rehabilitation previously. Status: Acute (4) Methamphetamine use: Monitor for any signs of withdrawal. Rehabilitation options if she will be willing to when she is feeling little bit better. Status: Acute (5) Smoking addiction: Encourage smoking cessation. Provide nicotine replacement for cravings. Status: Acute Additional A&P Information AST, ALT elevation: 58, 61 respectively. Hep C antibodies positive. Prominent periportal echoes on liver ultrasound without focal hepatic mass to suggest septic emboli. Cholelithiasis. Hyponatremia: Improving. Received IV hydration. Recheck sodium level. [place] sodium intake diet. History of impaired glucose tolerance: Consistent carbohydrate diet. Attestations Medical Necessity Statement*: Continue admission for assessment management of protracted soft tissue infection of the left foot, UTI, the setting of IV drug injection and recurrent infection. Coding Level of Care Code Acute Gravity Prospecting Operator Helper for [facility] Diagnoses Cellulitis of left foot L03.116 UTI (urinary tract infection) N39.0 Intravenous drug abuse F19.10 Methamphetamine use F15.10 Smoking addiction F17.200
[2020-03-20] VITALS (7 sets, daily range): BP systolic 115–126; BP diastolic 76–80; PULSE 79–91; RESP 18–20; TEMP 36.4–37; O2SAT 97–100; BMI 41.5
[2020-03-20] MEDS: sodium chloride 0.9% 1,000 ML 100 ML IV ×2 (04:09→12:06)
[2020-03-20] MEDS: acetaminophen 325 mg Tablet 650 MG PO (04:45)
[2020-03-20] MEDS: heparin 5,000 unit/mL INJ 1 mL 5000 UNIT SUBCUT ×2 (04:45→20:40)
[2020-03-20] MEDS: piperacillin-tazobactam 3.375 GM in sodium chloride 0.9% (plus) 50 ML IV ×3 (04:46→20:39)
[2020-03-20 10:33] LABS: Procalcitonin 4.26 ng/mL (0-0.5)
--- NOTE | 2020-03-20 11:38 | PM.PN ---
Subjective Subjective: Interval history: On examination patient is lying comfortably in bed. Discussed in detail with her that she would need 6 weeks of antibiotics to prevent her from amputation. She is agreeable to same. Also discussed that she has hepatitis C which is a new diagnosis. She denies of any nausea, vomiting, headache. States her pain is little better. Vitals/I&O/Wt Last Vital Signs Temp 98.5 F 03/20/20 11:28 Pulse 82 03/20/20 11:28 Resp 18 03/20/20 11:28 BP 123/79 03/20/20 11:28 Pulse Ox 97 03/20/20 11:28 03/19/20 03/20/20 03/20/20 22:59 06:59 14:59 Intake Total 1733.333 / 4080.000 1550 / 5630.000 Output Total 250 / 1100 Balance 1733.333 / 3230.000 1300 / 4530.000 Weight last 48 hrs Weight 106.226 kg Weight 106.226 kg Weight 107.411 kg Physical Exam Const: COMMON NORMALS: no acute distress and patient oriented x3 ORIENTATION/CONSCIOUSNESS: Yes awake OTHER: Appears comfortable. Napping. Wakes up easily. HENMT: COMMON NORMALS: oropharynx normal Neck/C-Spine: COMMON NORMALS: no JVD Resp: COMMON NORMALS: normal respiratory effort and clear to auscultation bilaterally AUSCULTATION: clear to auscultation bilaterally Cardio: COMMON NORMALS: no JVD, regular rhythm, S1 normal heart sound present, S2 normal heart sound present and No murmurs present (Cardio) RATE: tachycardic RHYTHM: regular rhythm HEART SOUNDS: S1 normal heart sound present and S2 normal heart sound present GI: COMMON NORMALS: Normal to inspection, nondistended, normoactive bowel sounds present, Soft to palpation and non-tender PALPATION: Yes Soft to palpation Extremity: COMMON NORMALS: no joint enlargement and no pedal edema OTHER: Foot drop left lower extremity Neuro: COMMON NORMALS: patient oriented x3 and moves all extremities Skin: RASHES: rashes noted (Improvement in erythema, swelling, warmth of the distal left foot, but faint erythema also extending up to about mid morrow circumferentially there is some swelling of left lower extremity compared to the right. Old healed scars of distal LLE.) and other (There is no extension past demarcation borders. Erythema is more faint today. Swelling with some small amount of improvement. Callus with black center/ulceration without any drainage at distal plantar large toe.) Data : 03/19/20 05:02 03/19/20 05:02 Micro: Microbiology 03/18/20 14:55 Urine Culture - Final Urine,Clean Catch Escherichia coli 03/18/20 12:47 Blood Culture - Preliminary Blood NEGATIVE TO DATE 03/18/20 12:40 Blood Culture - Preliminary Blood NEGATIVE TO DATE A&P Assessment and plan (1) Osteomyelitis: Status: Acute (2) Cellulitis of left foot: Status: Acute (3) UTI (urinary tract infection): Gram-negative rods in urine culture. Zosyn. Reports chronic urinary incontinence, previously following with urology. But says she stopped follow-up. Were encouraged to resume on discharge. Bladder scan PRN. Status: Acute (4) Intravenous drug abuse: Status: Acute (5) Methamphetamine use: Monitor for any signs of withdrawal. Rehabilitation options if she will be willing to when she is feeling little bit better. Status: Acute (6) Smoking addiction: Encourage smoking cessation. Provide nicotine replacement for cravings. Status: Acute Additional A&P Information Osteomyelitis/cellulitis of left foot: MRI of the foot consistent with possible small area of osteomyelitis in the great toe. Showing some improvement. Sepsis resolved. Continue with vancomycin and Zosyn for now. Continue to follow with blood cultures. Negative for now. Check procalcitonin. ESR CRP results appreciated. Reviewed the results of MRI with radiology. Discussed with Dr. Lang for possible bone biopsy. He states as patient does not have any open wound it is best to do antibiotics and see how she does. Discussed the same with patient as well and she is agreeable to the same. No DVT seen on venous duplex. Most likely plan would be to send home tomorrow on oral antibiotics with advised to follow-up as an outpatient with podiatry Dr. Beckford. Dr. Beckford not available for next 10 days as he is away. Intravenous drug abuse/hepatitis C:Discussed with her hepatitis C antibody positive. She states this is a new finding, but was not surprised. Discussed with her encouraged follow-up for additional assessment and referral for treatment. She is not in sudden drug rehabilitation at this time, but is agreeable to taking formation regarding her rehabilitation. Requested case management consultation. We will check hepatitis C RNA genotype and load. Reports methamphetamine injection, last time on last Friday. Reports she used to use pretty heavily in the past, (around the time of prior cellulitis her left foot), but later cut down and had to quit. But again started within the last several weeks. Currently I do not see evidence of septic embolization on her skin, mucous membranes, and chest x-ray is clear. Blood culture requested as above. She reports sharing needles with her boyfriend who was recently diagnosed with hep C. She understands the dangers of methamphetamine use, says he understands that she needs to stop. Has considered rehabilitation previously. AST, ALT elevation: 58, 61 respectively. Hep C antibodies positive. Prominent periportal echoes on liver ultrasound without focal hepatic mass to suggest septic emboli. Cholelithiasis. Hyponatremia: Improving. Received IV hydration. Recheck sodium level. [place] sodium intake diet. History of impaired glucose tolerance: We will check HbA1c. Consistent carbohydrate diet. Attestations Medical Necessity Statement*: Osteomyelitis/cellulitis, follow blood cultures for antibiotics to de-escalate on. Time Spent in Patient Care: Greater than 35 minutes (>than 50% of time spent in counselling and/or direct pt care on unit). Coding Level of Care Code Acute Interactive Graphic Designer for [facility] Diagnoses Osteomyelitis M86.9 Cellulitis of left foot L03.116 UTI (urinary tract infection) N39.0 Intravenous drug abuse F19.10 Methamphetamine use F15.10 Smoking addiction F17.200
--- NOTE | 2020-03-20 12:04 | PC.RESP ---
Smoking Cessation information to patient with a schedule of classes.
--- NOTE | 2020-03-20 20:10 | MR_ITS ---
WS: [id number] MRI LEFT FOOT with and without CONTRAST. COMPARISON: LEFT foot radiograph 03/18/2020. Multiplanar, multisequence imaging is performed with and without contrast. Sagittal and axial T1 fat sat sequences post-ProHance 17 cc IV. There is extensive soft tissue edema surrounding the first toe with a focal ulceration along the medi al toe measuring 9 x 8 mm. This ulceration may be packed due to the signal changes seen on MRI. The s oft tissue abnormality extends to abut the cortex of the distal phalanx of the first toe. There is a very large amount of soft tissue enhancement over the dorsal and medial aspect of the first toe. Circ umferential enhancement and soft tissue thickening. There is a small amount of enhancement that exten ds into the IP joint. There is very minimal loss of cortex along the medial distal phalanx. Suspect e ely involvement of the periosteum. This is greatest involving small osteophyte noted extending media lly from the distal phalanx. No additional signal abnormalities. MR/MR foot LT wo/w con [id number] IMPRESSION: 1. Large amount of cellulitis and soft tissue edema surrounding the first toe. 2. Significant enhancement of the soft tissues and highly suspicious for minim al periosteal involvement of the distal phalanx medial first toe. Suspicious fo r very small early area of osteomyelitis.
[2020-03-21] VITALS: BP 135/86; PULSE 83; RESP 18; TEMP 36.7; O2SAT 98
[2020-03-21 04:00] VITALS: BP 110/77; PULSE 83; RESP 18; TEMP 36.8; O2SAT 98
[2020-03-21] MEDS: heparin 5,000 unit/mL INJ 1 mL 5000 UNIT SUBCUT (05:24)
[2020-03-21] MEDS: piperacillin-tazobactam 3.375 GM in sodium chloride 0.9% (plus) 50 ML IV (05:24)
[2020-03-21 05:28] LABS: Basophils % 0.5 %; Eosinophils # 0.2 10^3/uL (0.0-0.8); Eosinophils % 3.8 %; Hematocrit 33.7 % (37.0-47.0); Lymphocytes # 1.3 10^3/uL (0.8-4.8); Lymphocytes % 32.4 %; Mean Corpuscular HGB Conc 32.6 g/dL (30.0-36.0); Mean Corpuscular Volume 85.8 fL (81-99); Mean Platelet Volume 11.6 fL (7.4-10.4); Monocytes # 0.3 10^3/uL (0.2-0.9); Monocytes % 8.6 %; Neutrophils # 2.14 10^3/uL (1.8-7.7); Neutrophils % 54.2 %; Nucleated Red Blood Cells % 0 %; Platelet Count 138 10^3/cmm (130-400); Red Blood Count 3.93 10^6/uL (4.1-5.3); Red Cell Distribution Width 14.8 % (12.1-15.1)
[2020-03-21 05:49] LABS: Alanine Aminotransferase 47 U/L (0-33); Albumin Level 2.9 g/dL (3.5-5.2); Alkaline Phosphatase 82 IU/L (35-105); Anion Gap 13.8 (5-19); Aspartate Amino Transferase 43 U/L (0-32); Blood Urea Nitrogen 6 mg/dL (6-20); Calcium 8.4 mg/dL (8.5-10.5); Carbon Dioxide 23 mmol/L (22-29); Chloride 105 mmol/L (98-107); Globulin 3.7 g/dL (1.3-4.6); Glomerular Filtration Rate 143.9 mL/min (90-130); Glucose 92 mg/dL (65-115); Osmolality Calculated 281 mOsm/kg (285-295); Potassium 3.8 mmol/L (3.5-5.1); Sodium 138 mmol/L (136-145); Total Bilirubin 0.4 mg/dL (0.15-1.2); Total Protein 6.6 g/dL (6.6-8.7)
--- NOTE | 2020-03-21 06:04 | PC.NURSE ---
SHIFT SUMMARY SHIFT SUMMARY Has slept well tonight without c/o. Dressing to left great toe dry & intact. Redness and edema to right foot/lower leg looks to be receding from previous markings done. Is occ incont of urine or will use the bathroom if just ask her to get up and go. Says this is not a new thing and she doesn't even know when she goes. Receiving IV antibiotics as ordered. Has not requested anything for pain tonight
[2020-03-21 07:42] VITALS: BP 116/76; PULSE 74; RESP 22; TEMP 36.7; O2SAT 98
--- NOTE | 2020-03-21 10:43 | P.DS_ITS ---
Discharge Providers Date of Admission: 03/18/20 15:33 Date of Discharge: March 21, 2020 Attending Provider at Admission: David Dolan Attending Provider at Discharge: Ozzie hSaver MD Primary Care Provider: Florencia Kyle APRN Diagnoses at Discharge Discharge Diagnosis (1) Osteomyelitis: Status: Acute (2) Cellulitis of left foot: Status: Acute (3) UTI (urinary tract infection): Status: Acute (4) Intravenous drug abuse: Status: Acute (5) Methamphetamine use: Status: Acute (6) Smoking addiction: Status: Acute Reason for Visit Reason for Visit: back pain Hospital Course Discharge Summary: Patricia Hernandez is a 29 year old lady with reported impaired glucose tolerance, IV drug abuse, current smoker, urinary incontinence, previously following up with Dr. 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 Since September 2019 has had a chronically ulcerated callus on left great toe. She says she does not wear her brace the way she is supposed to, and frequently walks barefoot. She has been following up with podiatry and reports they have had plans to potentially remove left leg hardw are, but only after a knee wounds have healed. I see that she had debridement of the callus in January in the office. Dressings with bacitracin were recommended. As well as offloading with cam boot. She reports that she did not change her dressings as she was instructed. Nor has she worn the boot. In ER she presents due to swelling of the distal left foot, and left great toe, erythema, as well as malaise, feeling warm/subjective fevers, is found to have leukocytosis of 11.9, tachycardia of 111. Temp 99.3. CRP 41.3. X-ray of the left foot shows soft tissue edema, most pronounced in a great toe. No underlying bony destruction to suggest osteomyelitis is seen on x-ray. Also noted hyponatremia 128, minimal elevation AST and ALT. She is also noted to have 0-4 WBCs in urine, positive nitrite, bacteria in the urine. She was wanted to the hospital started on broad-spectrum antibiotics. MRI foot was done which was concerning for extensive cellulitis, periosteal infection and small area of osteomyelitis. Case was discussed both with radiology and surgery for possible bone biopsy but because the area of osteomyelitis was very small bone biopsy could not be done. Because of history of IV drug abuse HIV and hepatitis C was checked. Patient is hepatitis C positive. Hepatitis C viral load and genome studies have been sent. Patient was counseled in detail to follow-up with her primary care provider for further work-up and referral if required. Abdominal ultrasound was done which did not show any hepatic mass or cirrhosis. She is been discharged in hemodynamically stable condition on oral Levaquin and doxycycline for next 6 weeks with advised to follow-up with podiatry in next 4 weeks for further work-up if required. Physical Exam Const: COMMON NORMALS: no acute distress and patient oriented x3 ORIENTATION/CONSCIOUSNESS: Yes awake OTHER: Appears comfortable. Napping. Wakes up easily. HENMT: COMMON NORMALS: oropharynx normal Neck/C-Spine: COMMON NORMALS: no JVD Resp: COMMON NORMALS: normal respiratory effort and clear to auscultation bilaterally AUSCULTATION: clear to auscultation bilaterally Cardio: COMMON NORMALS: no JVD, regular rhythm, S1 normal heart sound present, S2 normal heart sound present and No murmurs present (Cardio) RATE: tachycardic RHYTHM: regular rhythm HEART SOUNDS: S1 normal heart sound present and S2 normal heart sound present GI: COMMON NORMALS: Normal to inspection, nondistended, normoactive bowel sounds present, Soft to palpation and non-tender PALPATION: Yes Soft to palpation Extremity: COMMON NORMALS: no joint enlargement and no pedal edema OTHER: Foot drop left lower extremity Neuro: COMMON NORMALS: patient oriented x3 and moves all extremities Skin: RASHES: rashes noted (Improvement in erythema, swelling, warmth of the distal left foot, but faint erythema also extending up to about mid morrow circumferentially there is some swelling of left lower extremity compared to the right. Old healed scars of distal LLE.) and other (There is no extension past demarcation borders. Erythema is more faint today. Swelling with some small amount of improvement. Callus with black center/ulceration without any drainage at distal plantar large toe.) Discharge Data Data Completed and Pending: Completed Studies During Hospitalization Category Date Time Status XR chest 1V cameron ble [id number] Stat Exams 03/18/20 12:15 Completed XR foot LT min 3V * [id number] Stat Exams 03/18/20 12:15 Com[place] wo/[place] [id number] Routine MRI 03/20/20 20:10 [place] [id number] Routin e Ultrasound 03/19/20 18:10 Completed [place] abdomen limite d [id number] Routine Ultrasound 03/19/20 18:03 Completed Pending at discharge Category Date Time Status Blood Culture Sta t Lab 03/18/20 12:47 Results Hepatitis C Genot ype RNA AM LABS Lab 03/21/20 04:17 Received Hepatitis C RNA V iral Load Qnt AM L ABS Lab 03/21/20 04:17 Received Labs from last 24 hours 03/21/20 03/21/20 03/21/20 04:17 04:17 04:17 WBC RBC Hgb Hct MCV MCH MCHC RDW Plt Count MPV Neut % (Auto) Lymph % (Auto) [place] % (Auto) Eos % (Auto) Baso % (Auto) Neut # (Auto) Lymph # (Auto) [place] # (Auto) Eos # (Auto) Baso # (Auto) Nucleated RBC % (a uto) Nucleated RBCs # Sodium 138 Potassium 3.8 Chloride 105 Carbon Dioxide 23 Anion Gap 13.8 BUN 6 Creatinine 0.5 GFR Calculation 143.9 H Glucose 92 Calculated Osmolal ity 281 L Calcium 8.4 L Total Bilirubin 0.4 AST 43 H ALT 47 H Alkaline Phosphata se 82 Total Protein 6.6 Albumin 2.9 L Globulin 3.7 HCV RNA (PCR) IUs/ ml Pending HCV RNA (PCR) IU l og10 Pending Hep C Genotype (PC R) Pending 03/21/20 04:17 WBC 4.0 RBC 3.93 L Hgb 11.0 L Hct 33.7 L MCV 85.8 MCH 28.0 MCHC 32.6 RDW 14.8 Plt Count 138 MPV 11.6 H Neut % (Auto) 54.2 Lymph % (Auto) 32.4 [place] % (Auto) 8.6 Eos % (Auto) 3.8 Baso % (Auto) 0.5 Neut # (Auto) 2.14 Lymph # (Auto) 1.3 [place] # (Auto) 0.3 Eos # (Auto) 0.2 Baso # (Auto) 0.0 Nucleated RBC % (a uto) 0 Nucleated RBCs # 0.0 Sodium Potassium Chloride Carbon Dioxide Anion Gap BUN Creatinine GFR Calculation Glucose Calculated Osmolal ity Calcium Total Bilirubin AST ALT Alkaline Phosphata se Total Protein Albumin Globulin HCV RNA (PCR) IUs/ ml HCV RNA (PCR) IU l og10 Hep C Genotype (PC R) Vitals: Last Vital Signs Temp 98.0 F 03/21/20 07:42 Pulse 74 03/21/20 07:42 Resp 22 H 03/21/20 07:42 BP 116/76 03/21/20 07:42 Pulse Ox 98 03/21/20 07:42 Discharge Plan Discharge Patient Disposition: Home Condition: Stable Prescriptions: New levofloxacin 500 mg tablet 500 mg PO Q24H 42 Days Qty: 42 RF: 0 doxycycline hyclate 100 mg tablet 100 mg PO BID 42 Days Qty: 84 RF: 0 Discharge Orders: Discharge Order (Routine); Ordered 03/21/20 Ordered By: Ozzie Shaver Referrals: Florencia Kyle APRN [Primary Care Provider] - 4-7 days (You have an appointment on March 28 at 1 PM. ) David Beckford DPM [Physician] - 1 month Discharge Diet: Usual diet Discharge Activity: Increase activity as tolerated Patient Instructions: Cellulitis, Nitrofurantoin Combination (By mouth), How to Stop Smoking (DC), Osteomyelitis (DC), Methamphetamine Abuse (DC) Activity Restrictions/Additional Instructions: You have a new diagnosis of hepatitis C. Please follow-up with your primary care provider for further work-up and treatment and referrals as required. You will be on Levaquin and doxycycline for next 6 weeks for osteomyelitis. While you are on the antibiotics you should have weekly CBC and CMP. Doxycycline can cause photosensitivity. Please make sure that whenever you go in sun you apply good sunscreen. Please try to avoid using IV drugs as discussed in detail. Discharge Attestations Time Spent in Discharge Care*: greater than 30 min Specific Discharge Activities: Specific discharge activities: educating patient, discussing with pcp/other providers, discussing with pillowcase cleaner/social workers/dc planners, documenting/other paperwork and evaluating patient/reviewing data Status at Discharge: Cognitive status at discharge: cognitively intact , Behavioral status at discharge: cooperative , Functional status at discharge: independent ambulation Overall status at discharge: patient is back to baseline Quality Metrics Clinical Quality Measures During this hospital stay, did patient experience: None Coding Level of Care Code Acute Community Relations Liaison for [facility] Diagnoses Osteomyelitis M86.9 Cellulitis of left foot L03.116 UTI (urinary tract infection) N39.0 Intravenous drug abuse F19.10 Methamphetamine use F15.10 Smoking addiction F17.200
[2020-03-21 11:13] VITALS: BP 132/64; PULSE 72; RESP 18; TEMP 36.7; O2SAT 96
[2020-03-21 12:05] VITALS: BP 132/64; PULSE 72; RESP 18; TEMP 36.7; O2SAT 96
[2020-03-23 13:07] LABS: HEP C RNA Viral Load Quant 15900 IU/mL (NOT DETECTED)
[2020-03-26 01:52] LABS: Hepatitis C Genotype RNA 3
--- NOTE | 2020-04-18 16:39 | PC.SOCIAL ---
Discussed Blood and urine culture results with patient. She has follow up with Dr Murcia coming up and we have discussed that the abx she was discharged on from hospital should be sufficient but advised to follow up with Dr Murcia. Blood cultures show 1 of 4 bottles positive for an organism and have explained to patient may or may not be a contaminate but is very important she discuss with her PCP Florencia Kyle and she can discuss with Dr Beckford also tomorrow at that appt. Left message at Dr Dan office for a return call and emailed via secure email culture results to Dr Beckford and Gas Regulator Repairer of clinic Carmen Ibrahim. Called Florencia Kyle office spoke to Radha and updated her on cultures results. Asked that these be discussed with PCP Florencia. Radha advised they be faxed. Faxed to Attn Florencia and Radha with confirmation that fax was successfully sent. Patient has appt with Dr Beckford tomorrow and Florencia end of next week. Patient indicates she is still taking the abx prescribed at discharge and is overall doing okay. Does still have some concerns with urination using depends and is why she will be seeing Dr Murcia. Patient verbalized understanding of all discussed.
--- NOTE | 2020-04-18 17:09 | PC.SOCIAL ---
Dr Beckford returned call and discussed culture results. He confirmed appointment with him is actually at 2pm. Notified patient of this and she agreed this is the case.
== END 2020-03-21 12:07 | disposition home or self-care (01) | DRG 603 ==
LOC: ER 15:51 → MEDSURG 16:42
PROVIDERS: Admitting Provider Internal Medicine; Emergency Provider Family Medicine; PCP Nurse Practitioner Family; Visit Provider Student in an Organized Health Care Education/Training Program
DX: L03.032 Cellulitis of left toe (principal); M86.8X7 Other osteomyelitis, ankle and foot; E87.1 Hypo-osmolality and hyponatremia; N39.0 Urinary tract infection, site not specified; F17.210 Nicotine dependence, cigarettes, uncomplicated; I69.998 Other sequelae following unspecified cerebrovascular disease; M21.372 Foot drop, left foot; F15.10 Other stimulant abuse, uncomplicated; F19.10 Other psychoactive substance abuse, uncomplicated; B19.20 Unspecified viral hepatitis C without hepatic coma; K80.20 Calculus of gallbladder without cholecystitis without obstruction
CPT/HCPCS: 12345; 36415; 51701; 71045; 73630; 73720; 76705; 80053; 80074; 81001; 83605; 84145; 84295; 84703; 85025; 86140; 87040; 87077; 87086; 87184; 87186; 87205; 87522; 87806; 87902; 93971; 96372; 99283; A9579; J1644; J2405; J2543; J3370; J7030; J7050

== ENCOUNTER → 2020-03-28 13:12 | Outpatient (BNVA) | payer MEDICAID, SELFPAY | PROVIDERS: PCP Nurse Practitioner Family; Visit Provider Nurse Practitioner Family | DX: Z72.51 High risk heterosexual behavior (principal); M86.9 Osteomyelitis, unspecified; R53.83 Other fatigue | CPT/HCPCS: 81003; 83036; 85025; 87491; 87591 ==

== ENCOUNTER 2020-04-04 16:40 | Outpatient (CLI) | payer MEDICAID, SELFPAY ==
[2020-04-04 17:26] LABS: Basophils # 0.1 10^3/uL (0.0-0.1); Basophils % 1.7 %; Eosinophils # 0.2 10^3/uL (0.0-0.8); Eosinophils % 4.1 %; Hematocrit 40.6 % (37.0-47.0); Hemoglobin 12.8 g/dL (11.5-15.3); Lymphocytes # 0.9 10^3/uL (0.8-4.8); Lymphocytes % 23.7 %; Mean Corpuscular HGB Conc 31.5 g/dL (30.0-36.0); Mean Corpuscular Volume 88.8 fL (81-99); Mean Platelet Volume 9.9 fL (7.4-10.4); Monocytes # 0.4 10^3/uL (0.2-0.9); Monocytes % 9.9 %; Neutrophils # 2.19 10^3/uL (1.8-7.7); Neutrophils % 60.3 %; Nucleated Red Blood Cells % 0 %; Platelet Count 305 10^3/cmm (130-400); Red Blood Count 4.57 10^6/uL (4.1-5.3); Red Cell Distribution Width 15.2 % (12.1-15.1); White Blood Count 3.6 10^3/uL (4.0-10.0)
== END 2020-04-04 16:41 | disposition home or self-care (01) ==
LOC: LAB 16:43
PROVIDERS: PCP Nurse Practitioner Family; Visit Provider Nurse Practitioner Family
DX: Z00.00 Encounter for general adult medical examination without abnormal findings (principal)
CPT/HCPCS: 85025

== ENCOUNTER → 2020-04-20 14:18 | Outpatient (BNVA) | payer MEDICAID, SELFPAY | PROVIDERS: PCP Nurse Practitioner Family; Visit Provider Podiatrist Foot & Ankle Surgery | DX: L84 Corns and callosities (principal); M21.612 Bunion of left foot; M86.9 Osteomyelitis, unspecified; Z98.890 Other specified postprocedural states | CPT/HCPCS: 73630 ==

== ENCOUNTER → 2020-04-25 12:56 | Outpatient (BNVA) | payer MEDICAID, SELFPAY | PROVIDERS: PCP Nurse Practitioner Family; Visit Provider Nurse Practitioner Family | DX: N31.9 Neuromuscular dysfunction of bladder, unspecified (principal); R32 Unspecified urinary incontinence | CPT/HCPCS: 81003 ==

== ENCOUNTER → 2020-06-15 14:59 | Outpatient (BNVA) | payer MEDICAID, SELFPAY | PROVIDERS: PCP Nurse Practitioner Family; Visit Provider Internal Medicine | DX: B18.2 Chronic viral hepatitis C (principal); B19.20 Unspecified viral hepatitis C without hepatic coma | CPT/HCPCS: 87902 ==

== ENCOUNTER → 2020-07-18 14:34 | Outpatient (BNVA) | payer MEDICAID, SELFPAY | PROVIDERS: PCP Nurse Practitioner Family; Visit Provider Nurse Practitioner Family | DX: R30.0 Dysuria (principal); I69.998 Other sequelae following unspecified cerebrovascular disease; N31.9 Neuromuscular dysfunction of bladder, unspecified; R10.9 Unspecified abdominal pain; N39.0 Urinary tract infection, site not specified; Z87.898 Personal history of other specified conditions; Z91.19 Patient's noncompliance with other medical treatment and regimen | CPT/HCPCS: 81003; 81025; 87077; 87086; 87184 ==

== ENCOUNTER 2021-11-09 11:24 | Emergency (ER) | payer MEDICAID, SELFPAY ==
[2021-11-09 11:39] VITALS: BP 159/125; PULSE 77; RESP 22; O2SAT 99; BMI 47.8
--- NOTE | 2021-11-09 12:11 | ED_ITS ---
HPI - Back Pain/Injury General: Chief Complaint: Back Pain/Injury Stated Complaint: Back and stomach pain Time Seen by Provider: 11/09/21 11:46 Source: patient Mode of arrival: ambulatory Limitations: no limitations History of Present Illness: This patient presents to our emergency department because of urinary frequency, dysuria and suprapubic and lower abdominal discomfort. She states she has pain that radiates up into her lower back as well. She states this pain is very similar to that she is experienced in the past. She does state that she has a history of frequent urinary tract infections. She denies any fevers or chills. She denies any nausea vomiting or diarrhea. She denies any back injury. Again she reiterates that the symptoms are exactly that which she is experienced previously. She has no history of kidney stones. She states that she had a stroke when she was a child and has some urinary incontinence as a result and wears depends. She denies vaginal discharge vaginal bleeding uterine cramping etc. She states her last menstrual period was early October and she is due for her period anytime. She denies any risk of . MD elicited complaint: back pain Similar Symptoms Previously: Yes Associated symptoms: Reports dysuria, urinary frequency and urinary urgency; Deny chills, difficulty walking, fecal incontinence, fever(s), nausea, tingling/numbness/burning or vomiting Review of Systems Const: Denies: fever(s) or chills Eyes: Denies: change in vision ENMT: Denies: throat pain or odynophagia Card: Denies: chest pain or palpitations Resp: Denies: dyspnea or wheezing GI: Denies: nausea, vomiting or fecal incontinence : Reports: dysuria, urinary frequency and urinary urgency; Denies: flank pain, genital pruritis, vaginal dryness, vaginal bleeding, vaginal discharge or irregular period Musc: Reports: back pain; Denies: neck pain, extremity pain or extremity swelling Skin/Breast: Denies: rash or pruritus Neuro: Denies: difficulty walking Morris/Lymph: Denies: easy bruising or easy bleeding PFS ED PFSH: Medical History Foot drop, left 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 Patient is non-compliant with historical brace use. History of CVA (cerebrovascular accident) At age of 7. Neurogenic bladder Recent surgical procedure on lower extremity 2014 Urinary incontinence Surgical History S/P ORIF (open reduction internal fixation) fracture Family History Mother Diabetes Father Diabetes Social History Smoking and tobacco status: current every day smoker Alcohol intake: never Counseling given: Yes Last substance use date: 03/13/20 Other details last substance use: Reports were injecting in the arms, shares needles with her boyfriend who was recently diagnosed with hepatitis C. Lives independently: Yes Household members: family Marital status: Single Current occupational status: unemployed and other History of recent travel: No Female Reproductive History: Date of last menstrual period: 10/19/21 Physical Exam Narrative: EXAM NARRATIVE: She makes good eye contact. Is cooperative and appears to be in no acute distress. Const: COMMON NORMALS: no acute distress and patient oriented x3 NUTRITIONAL APPEARANCE: overweight HENMT: COMMON NORMALS: normocephalic and moist oral mucous membranes HEAD & SCALP: normocephalic Eye: COMMON NORMALS: Equal, round and reactive pupils present and EOMs intact bilaterally PUPIL: Yes Equal, round and reactive pupils present Neck/C-Spine: COMMON NORMALS: full ROM and no JVD CERVICAL SPINE: No Cervical spine tenderness Chest: COMMONS NORMALS: normal inspection of the chest Resp: COMMON NORMALS: normal respiratory effort, No use of accessory muscles and clear to auscultation bilaterally AUSCULTATION: clear to auscultation bilaterally Cardio: COMMON NORMALS: no JVD, regular rhythm, No murmurs present (Cardio) and Peripheral pulses 2+ throughout RHYTHM: regular rhythm PERIPHERAL PULSES: Peripheral pulses 2+ throughout GI: COMMON NORMALS: Soft to palpation PALPATION: Yes Soft to palpation, No Guarding due to palpation present (GI), No Hernia present, No Rebound tenderness present and Yes Bladder palpation abnormal : COMMON NORMALS: Yes no CVA tenderness BLADDER/KIDNEY EXAM: Yes no CVA tenderness and Yes Bladder palpation abnormal EXTERNAL FEMALE EXAM: No Hernia present Back/Pelvis: COMMON NORMALS: no CVA tenderness, thoracic and lumbar spine normal to inspection, no thoracic nor lumbar tenderness, thoraco-lumbar ROM normal and straight leg raise negative bilaterally Extremity: COMMON NORMALS: normal to inspection, full ROM, no calf tenderness and no pedal edema Neuro: COMMON NORMALS: patient oriented x3, moves all extremities, no focal motor deficits and no sensory deficits noted SPEECH: speech normal Course Reevaluation(s): Reevaluation #1: Shared results with patient and accompanying partner. We will [place] begin on Macrodantin, obtain culture as well as add antispasmodics. Discussed return precautions with the patient and partner. Also related elevation in blood pressure noted at triage today. She states she has never had issues with blood pressure previously. I encouraged her to monitor her blood pressure and follow- up with her doctor for sustained blood pressures in the 140/90 or greater range or she is welcome to return to the emergency department. Time: 12:47 Vital Signs: Vital signs: Vital Signs Pulse Rate 77 11/09/21 11:39 Respiratory Rate 22 H 11/09/21 11:39 Blood Pressure 159/125 11/09/21 11:39 Pulse Oximetry 99 11/09/21 11:39 MDM - Back Pain/Injury Medical Decision Making Patient with presentation of low back pain dysuria and urinary frequency similar to prior symptoms. Urinalysis today confirms likely source is a lower urinary tract infection. No evidence of sepsis or medical instability at this time. No findings to suggest musculoskeletal etiology to her back pain either. She will be treated empirically with antibiotics pending culture with follow-up precautions. Also reviewed blood pressure elevation with she and spouse. Medical Records I reviewed the patient's medical records. Labs I reviewed the patient's lab results. Laboratory Results HCG, Qual Negative (Negative) 11/09/21 12:03 Urine Color Yellow (Yellow) 11/09/21 12:03 Urine Appearance Cloudy (CLEAR) 11/09/21 12:03 Urine pH 6 (5-7) 11/09/21 12:03 Ur Specific [place] 1.020 (1.005-1.030) 11/09/21 12:03 Urine Protein Neg (Negative) 11/09/21 12:03 Urine Glucose (UA) Norm (Normal) 11/09/21 12:03 Urine Ketones Negative (Negative) 11/09/21 12:03 Urine Blood 2+ (Negative) H 11/09/21 12:03 Urine Nitrate Positive (Negative) H 11/09/21 12:03 Urine Bilirubin Neg (Negative) 11/09/21 12:03 Urine Urobilinogen Norm mg/dL (Negative) 11/09/21 12:03 Ur Leukocyte Esterase 2+ (Negative) H 11/09/21 12:03 Urine RBC 0-4 /hpf (0-2) H 11/09/21 12:03 Urine WBC 15-25 /hpf (0-5) H 11/09/21 12:03 Ur Squamous Epith Cells 10-15 /hpf (0-5) H 11/09/21 12:03 Amorphous Sediment Not Reportable 11/09/21 12:03 Urine Bacteria 3+ /hpf (NONE) H 11/09/21 12:03 Discharge Plan Discharge Patient Disposition: Home Clinical Impression: Urinary tract infection Condition: Stable Prescriptions: New nitrofurantoin monohyd/m-cryst [Macrobid] 100 mg capsule 100 mg PO BID 7 Days Qty: 14 0RF Rx Instructions: must administer with a meal/food hyoscyamine sulfate [Levsin] 0.125 mg tablet 0.125 mg PO Q6H PRN (Reason: dyspepsia) Qty: 20 0RF No Action (DME) Articulating AFO See Rx Instructions .Route .MEDSUPPLY Qty: 1 0RF Rx Instructions: As directed by [facility] Discharge Orders: Discharge ED (Routine); Ordered 11/09/21 Ordered By: Rogerio Simmons Referrals: Florencia Smith FNP-C [Primary Care Provider] - Discharge Diet: Usual diet Discharge Activity: Resume usual activity Patient Instructions: Opioid Safety Activity Restrictions/Additional Instructions: Take the medications we have prescribed to help with your infection. If changes need to be made based upon the urine culture we will contact you. Ensure that you are drinking at least 64 ounces of water daily in addition to other fluids. You should check your blood pressure 2-3 times weekly and record those numbers and follow-up with your doctor if they remain greater than 140/90. If you develop any new persistent or worsening symptoms or other concerns return to this or the nearest emergency department. Coding Level of Care Code ED Insulation And Flooring Assembler for Joao Fwgrisel Exam Comprehensive
--- NOTE | 2021-11-09 12:16 | PC.PHAR ---
pt states she takes no rx or otc medications
[2021-11-09 12:27] LABS: Add Urine Microscopic? YES; Bilirubin Urine Neg (Negative); Blood Urine 2+ (Negative); Glucose Urine UA Norm (Normal); HCG Qualitative Urine. Negative (Negative); Ketones Urine Negative (Negative); Leukocyte Esterase Urine 2+ (Negative); Nitrate Urine Positive (Negative); Protein Urine Neg (Negative); Urine Appearance Cloudy (CLEAR); Urine Color Yellow (Yellow); Urobilinogen Urine Norm (Negative); pH Urine 6 (5-7)
[2021-11-09] MEDS: hyoscyamine ODT 0.125 mg Tablet 0.25 MG PO (12:30)
[2021-11-09 12:33] LABS: RBC Urine 0-4 /hpf (0-2)
[2021-11-09 12:34] LABS: Bacteria Urine 3+ /hpf; WBC Urine 15-25 /hpf (0-5)
[2021-11-09 12:35] LABS: Add Urine Culture? No
[2021-11-09 13:01] VITALS: BP 145/97; PULSE 74; TEMP 36.6; O2SAT 99
== END 2021-11-09 13:03 | disposition home or self-care (01) ==
PROVIDERS: Emergency Provider Emergency Medicine; PCP Nurse Practitioner Family
DX: N39.0 Urinary tract infection, site not specified (principal); F17.200 Nicotine dependence, unspecified, uncomplicated
CPT/HCPCS: 81001; 81025; 87077; 87086; 87186; 99283

== ENCOUNTER → 2021-12-05 15:06 | Outpatient (BNVA) | payer MEDICAID, SELFPAY | PROVIDERS: PCP Nurse Practitioner Family; Visit Provider Podiatrist Foot & Ankle Surgery | DX: M21.372 Foot drop, left foot (principal); L84 Corns and callosities; G62.9 Polyneuropathy, unspecified; M79.672 Pain in left foot | CPT/HCPCS: 99213; 99214 ==

== ENCOUNTER → 2022-09-10 08:57 | Outpatient (BNVA) | payer MEDICAID, SELFPAY | PROVIDERS: PCP Nurse Practitioner Family; Visit Provider Podiatrist Foot & Ankle Surgery | DX: L97.522 Non-pressure chronic ulcer of other part of left foot with fat layer exposed (principal); S91.341A Puncture wound with foreign body, right foot, initial encounter; W60.XXXA Contact with nonvenomous plant thorns and spines and sharp leaves, initial encounter; M21.372 Foot drop, left foot; L60.0 Ingrowing nail | CPT/HCPCS: 11042; 28190; 73630 ==

== ENCOUNTER → 2022-09-23 15:27 | Outpatient (BNVA) | payer MEDICAID, SELFPAY | PROVIDERS: PCP Nurse Practitioner Family; Visit Provider Podiatrist Foot & Ankle Surgery | DX: M21.372 Foot drop, left foot (principal); L97.522 Non-pressure chronic ulcer of other part of left foot with fat layer exposed; S91.331A Puncture wound without foreign body, right foot, initial encounter; X58.XXXA Exposure to other specified factors, initial encounter | CPT/HCPCS: 99213 ==

== ENCOUNTER → 2023-08-04 14:30 | Outpatient (BNVA) | payer MEDICAID, SELFPAY | PROVIDERS: PCP Nurse Practitioner Family; Visit Provider Podiatrist Foot & Ankle Surgery | DX: R23.4 Changes in skin texture; M25.371 Other instability, right ankle; M21.6X1 Other acquired deformities of right foot; R26.9 Unspecified abnormalities of gait and mobility; R26.81 Unsteadiness on feet | CPT/HCPCS: 99213 ==

== ENCOUNTER → 2023-09-29 13:15 | Outpatient (BNVA) | payer MEDICAID, SELFPAY | PROVIDERS: PCP Nurse Practitioner Family; Visit Provider Podiatrist Foot & Ankle Surgery | DX: R23.4 Changes in skin texture (principal); M25.371 Other instability, right ankle; M21.6X1 Other acquired deformities of right foot; R26.9 Unspecified abnormalities of gait and mobility; R26.81 Unsteadiness on feet | CPT/HCPCS: 99213 ==

== ENCOUNTER 2023-12-14 22:40 | Emergency (ER) | payer MEDICAID, SELFPAY ==
[2023-12-14 22:46] VITALS: BP 119/82; PULSE 94; RESP 16; TEMP 36.8; O2SAT 99; BMI 46.0
--- NOTE | 2023-12-14 23:12 | W.ED.ABDPA2 ---
HPI - Abdominal Pain General: Chief Complaint: Abdominal Pain Stated Complaint: Abd and Back Pain Time Seen by Provider: 12/14/23 23:00 History of Present Illness: 33-year-old female comes in today with pain in the lower abdomen similar to prior urinary tract infections. Patient has a history of a stroke with affecting the lower extremities or bowel or bladder. Patient admits that she is incontinent of bowel and bladder. Patient does get recurrent urinary tract infections. Patient appears nontoxic. Patient appears in mild pain. Review of Systems General: Reports: 10 or more systems reviewed and unremarkable except in HPI and below PFSH ED PFSH: Medical History (Updated 12/14/23 @ 23:56 by YULI Flores) Neurogenic bladder Recent surgical procedure on lower extremity 2014 Urinary incontinence History of CVA (cerebrovascular accident) At age of 7. Foot drop, left 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 Patient is non-compliant with historical brace use. Surgical History S/P ORIF (open reduction internal fixation) fracture Family History Mother Diabetes Father Diabetes Social History Smoking and tobacco/nicotine status: current every day tobacco/nicotine user Alcohol intake: never Substance/Drug Use: current Substance/Drug use frequency: few times a week Other substance/drug use details: Reports IV use previously, then states quit for a while, but picked up again about 1-2 weeks. Lives independently: Yes Household members: family Marital status: Single Current occupational status: unemployed and other Physical Exam Const: COMMON NORMALS: alert HENMT: HEAD & SCALP: normal to inspection Neck/C-Spine: COMMON NORMALS: full ROM Resp: COMMON NORMALS: normal respiratory effort Cardio: COMMON NORMALS: regular rate and regular rhythm RATE: regular rate RHYTHM: regular rhythm Back/Pelvis: COMMON NORMALS: thoracic and lumbar spine normal to inspection Extremity: COMMON NORMALS: no pedal edema Neuro: SENSORIUM/ORIENTATION: Yes alert Skin: COMMON NORMALS: turgor normal GENERAL SKIN EXAM: turgor normal Course Vital Signs: Vital signs: Vital Signs Temperature 98.3 F 12/14/23 22:46 Pulse Rate 101 H 06/09/24 23:49 Respiratory Rate 16 12/14/23 22:46 Blood Pressure 119/82 12/14/23 22:46 Pulse Oximetry 98 12/14/23 23:49 Oxygen Delivery Me thod Room Air 12/14/23 23:49 MDM - Abdominal Pain Medical Decision Making Patient comes in today for complaints of abdominal pain and urinary discomfort. Patient appears nontoxic. Respirations are even lungs are clear to auscultation. No edema is noted in the extremities. Vital signs are normal. Differential diagnosis includes but not limited to urinary tract infection, gastroenteritis, constipation, renal calculi. Urinalysis showed large amount of white blood cells and positive for nitrates. Patient was given 1 g of Rocephin in the ER. Patient be continued on Macrobid at home. Patient refused blood work and CT scan. Urine was sent for culture. Patient reports understanding of care plan need for follow-up or return to the ER. Lab Data Labs/Radiology: Laboratory Results Urine Color Dark yellow (Yellow) 12/14/23 23:25 Urine Appearance Cloudy (CLEAR) A 12/14/23 23:25 Urine pH 7 (5-7) 12/14/23 23:25 Ur Specific [place] 1.015 (1.005-1.030) 12/14/23 23:25 Urine Protein 3+ (Negative) H 12/14/23 23:25 Urine Glucose (UA) Norm (Normal) 12/14/23 23:25 Urine Ketones 2+ (Negative) H 12/14/23 23:25 Urine Blood 3+ (Negative) H 12/14/23 23:25 Urine Nitrate Positive (Negative) H 12/14/23 23:25 Urine Bilirubin 1+ (Negative) H 12/14/23 23:25 Urine Urobilinogen Neg mg/dL (Negative) 12/14/23 23:25 Ur Leukocyte Esterase 2+ (Negative) H 12/14/23 23:25 Urine RBC 5-10 /hpf (0-2) H 12/14/23 23:25 Urine WBC 55-80 /hpf (0-5) H 12/14/23 23:25 Ur Squamous Epith Cells 5-10 /hpf (0-5) H 12/14/23 23:25 Amorphous Sediment 1+ /hpf 12/14/23 23:25 Urine Bacteria 4+ /hpf (NONE) H 12/14/23 23:25 Urine Mucus Trace /hpf 12/14/23 23:25 No radiology studies performed this visit Discharge Plan Discharge Patient Disposition: Home Clinical Impression: UTI (urinary tract infection) Qualifiers: Urinary tract infection type: acute cystitis Hematuria presence: without hematuria Qualified Code(s): N30.00 - Acute cystitis without hematuria Condition: Stable Prescriptions: New Macrobid 100 mg capsule 100 mg PO BID 7 Days Qty: 14 0RF Rx Instructions: must administer with a meal/food No Action (DME) Articulating AFO See Rx Instructions .Route .MEDSUPPLY Qty: 1 0RF Rx Instructions: As directed by [facility] mupirocin 2 % ointment See Rx Instructions .ROUTE .COMPLEX Qty: 22 0RF Dose Instruction: APPLY TOPICALLY TO THE AFFECTED AREA TWICE DAILY FOR 2 WEEKS Rx Instructions: APPLY TOPICALLY TO THE AFFECTED AREA TWICE DAILY FOR 2 WEEKS Levsin 0.125 mg tablet 0.125 mg PO Q6H PRN (Reason: dyspepsia) Qty: 20 0RF Discharge Orders: Discharge ED (Routine); Ordered 12/14/23 Ordered By: Osman Hurtado Referrals: Florencia Smith FNP-C [Primary Care Provider] - Discharge Diet: Usual diet Discharge Activity: Increase activity as tolerated Patient Instructions: Urinary Tract Infection in Women (ED) Activity Restrictions/Additional Instructions: Take medications as directed. Follow-up with primary care for further instructions. Return to ER for new concerns. Coding Level of Care Code ED Director Of Nurses Registry for Joao Rodriguez
[2023-12-14 23:43] LABS: Add Urine Culture? Yes; Add Urine Microscopic? YES; Amorphous Sediment Urine 1+ /hpf; Bacteria Urine 4+ /hpf; Bilirubin Urine 1+ (Negative); Blood Urine 3+ (Negative); Glucose Urine UA Norm (Normal); Ketones Urine 2+ (Negative); Leukocyte Esterase Urine 2+ (Negative); Mucus Urine TRACE /hpf; Nitrate Urine Positive (Negative); Protein Urine 3+ (Negative); Specific Gravity, Urine 1.015 (1.005-1.030); Urine Appearance Cloudy (CLEAR); Urine Color Dark Yellow (Yellow); Urobilinogen Urine Neg (Negative); WBC Urine 55-80 /hpf (0-5); pH Urine 7 (5-7)
[2023-12-14 23:49] VITALS: PULSE 101; O2SAT 98
[2023-12-15] MEDS: cefTRIAXone 1,000 MG in water for injection-sterile 2.1 ML 1 MG IM (00:17)
[2023-12-15 00:35] VITALS: PULSE 97; O2SAT 99
== END 2023-12-15 00:42 | disposition home or self-care (01) ==
PROVIDERS: Emergency Provider Nurse Practitioner Family; PCP Nurse Practitioner Family
DX: N30.00 Acute cystitis without hematuria (principal); Z86.73 Personal history of transient ischemic attack (TIA), and cerebral infarction without residual deficits; Z72.0 Tobacco use
CPT/HCPCS: 81001; 87077; 87086; 87186; 96372; 99284; J0696

== ENCOUNTER 2025-05-09 18:25 | Emergency (ER) | payer MEDICAID, SELFPAY ==
[2025-05-09 18:27] VITALS: BP 158/81; PULSE 99; RESP 15; TEMP 36.6; O2SAT 100; BMI 38.9
--- OUTSIDE RECORDS SUMMARY | 2025-05-09 18:30 | XMS_ITS | Clinical Summary ---
Author Organization [employer] [facility] Address [address] Perez: [place] [address] Care Team Providers Care Director Of Safety And Security Name Role Phone Tucker Bassett MD, Torsten Hatfield Primary Care Provider Immunizations Immunization Administration Dates Next Due (TDVAX)(7 YRS UP) TETANUS AN D DIPHTHERIA TOXOIDS, ADSORBED (2 LF OF TETANUS TOXOID AND 2 LF OF DIPHTHERIA TOXOID), 0.5ML (PF), IM 04/02/2004 Hepatitis B Vaccine 02/19/2000,04/11/1999,1998 Social History Tobacco Use Types Packs/Day Years Used Date Smoking Tobacco: Never Assessed Comments Unknown Sex and Gender Information Value Date Recorded Sex Assigned at Not on file Legal Sex Female 3:46 AM DRY SANDER Gender Identity Not on file Sexual Orientation Not on file Plan of Treatment Health Maintenance Due Date Last Done Comments DTAP/TDAP/TD VACCINES (2 - Tdap) 04/03/2004 04/02/20 04 HPV/Cotest (21-29) 2009 HPV VACCINES (1 - 3-dose SCD M series) 2015 CERVICAL CANCER SCREENING 2018 HPV/Cotest (30-65) 2018 PAP SMEAR 2018 INFLUENZA VACCINE (#1) 2025 HEPATITIS B VACCINES Completed 02/19/2000, 04/11/1999, 02/13/1999 Care Teams Director Of Safety And Security Relationship Specialty Start Date End Date Torsten Ceballos Jr., MD [address] [address] PCP - General 09/20/03
--- OUTSIDE RECORDS SUMMARY | 2025-05-09 18:30 | XMS_ITS | Encounter Summary ---
Author Organization [email or web address] [facility] Address [address] [place] [address] Care Team Providers Care Buttermilk Drier Operator Name Role Phone Tucker Bassett MD, Torsten Hatfield Primary Care Provider Encounter Details Date Type Department Care Team (Latest Contact Info) Description 02/25/2001 Outpatient Historical [facility], Osman Ely MD [address] [place] [address] Closed fracture of metatarsal bone(s) (Primary Dx); Contracture of tendon; Paraplegia (CMS/HCC) Social History Tobacco Use Types Packs/Day Years Used Date Smoking Tobacco: Never Assessed Comments Unknown Sex and Gender Information Value Date Recorded Sex Assigned at Not on file Legal Sex Female 3:46 AM TELEVISION TECHNICIAN Gender Identity Not on file Sexual Orientation Not on file documented as of this encounter Plan of Treatment Not on file documented as of this encounter Visit Diagnoses Diagnosis Closed fracture of metatarsal bone(s)- Primary 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
--- OUTSIDE RECORDS SUMMARY | 2025-05-09 18:30 | XMS_ITS | Encounter Summary ---
Author Organization [facility] Address [address] Perez: [place] [address] Care Team Providers Care Furnace Charging Machine Operator Name Role Phone Tucker Bassett MD, Torsten Hatfield Primary Care Provider Encounter Details Date Type Department Care Team (Late st Contact Info) Description 12/04/2000 Outpatient Historical [facility], Osman Ely MD [address] [place] [address] Social History Tobacco Use Types Packs/Day Years Used Date Smoking Tobacco: Never Assessed Comments Unknown Sex and Gender Information Value Date Recorded Sex Assigned at Not on file Legal Sex Female 3:46 AM ARCHITECTURAL TECHNOLOGIST Gender Identity Not on file Sexual Orientation Not on file documented as of this encounter Plan of Treatment Not on file documented as of this encounter Visit Diagnoses Not on filedocumented in this encounter Care Teams Furnace Charging Machine Operator Relationship Specialty Start Date End Date oTrsten Ceballos Jr., MD [address] [address] PCP - General 09/20/03 documented as of this encounter
--- OUTSIDE RECORDS SUMMARY | 2025-05-09 18:30 | XMS_ITS | Encounter Summary ---
Author Organization [employer] [facility] Address [address] [place] [address] Care Team Providers Care Physician Coding Specialist Name Role Phone Tucker Bassett MD, Torsten Hatfield Primary Care Provider Encounter Details Date Type Department Care Team (Latest Contact Info) Description 01/02/2001 Outpatient Historical [facility] HART, Osman Ely MD [address] [place] [address] Contracture of tendon (Primary Dx); Paraplegia (CMS/HCC) Social History Tobacco Use Types Packs/Day Years Used Date Smoking Tobacco: Never Assessed Comments Unknown Sex and Gender Information Value Date Recorded Sex Assigned at Not on file Legal Sex Female 3:46 AM THERAPY TEACHER Gender Identity Not on file Sexual Orientation Not on file documented as of this encounter Plan of Treatment Not on file documented as of this encounter Visit Diagnoses Diagnosis Contracture of tendon- Primary Contracture of tendon (sheath) Paraplegia (CMS/HCC) Paraplegia documented in this encounter Care Teams Physician Coding Specialist Relationship Specialty Start Date End Date Torsten Ceballos Jr., MD [address] [address] PCP - General 09/20/03 documented as of this encounter
--- OUTSIDE RECORDS SUMMARY | 2025-05-09 18:30 | XMS_ITS | Encounter Summary ---
Author Organization [employer] [facility] Address [address] [place] [address] Care Team Providers Care Solar Mechanical Engineer Name Role Phone Tucker Bassett MD, Torsten Hatfield Primary Care Provider Encounter Details Date Type Department Care Team (Latest Contact Info) Description 09/23/2001 Outpatient Historical [facility] Goodman HART, Osman Ely MD [address] [place] [address] FX METATARSAL-CLOSED (Primary Dx); Contracture of tendon; PARAPLEGIA NOS (CMS/HCC) Social History Tobacco Use Types Packs/Day Years Used Date Smoking Tobacco: Never Assessed Comments Unknown Sex and Gender Information Value Date Recorded Sex Assigned at Not on file Legal Sex Female 3:46 AM SOLAR SALES SPECIALIST Gender Identity Not on file Sexual Orientation Not on file documented as of this encounter Plan of Treatment Not on file documented as of this encounter Visit Diagnoses Diagnosis Closed fracture of metatarsal bone(s)- Primary 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
--- OUTSIDE RECORDS SUMMARY | 2025-05-09 18:30 | XMS_ITS | Encounter Summary ---
Author Organization [employer] [facility] Address [address] [place] [address] Care Team Providers Care Ladle Operator Name Role Phone Tucker Bassett MD, Torsten Hatfiled Primary Care Provider Encounter Details Date Type Department Care Team (Latest Contact Info) Description 12/11/2000 Outpatient Historical [facility] HART, Osman Ely MD [address] [place] [address] Closed fracture of metatarsal bone(s) (Primary Dx); Contracture of tendon; Paraplegia (CMS/HCC) Social History Tobacco Use Types Packs/Day Years Used Date Smoking Tobacco: Never Assessed Comments Unknown Sex and Gender Information Value Date Recorded Sex Assigned at Not on file Legal Sex Female 3:46 AM CLOTH MERCERIZER BACK TENDER Gender Identity Not on file Sexual Orientation Not on file documented as of this encounter Plan of Treatment Not on file documented as of this encounter Visit Diagnoses Diagnosis Closed fracture of metatarsal bone(s)- Primary 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
--- OUTSIDE RECORDS SUMMARY | 2025-05-09 18:30 | XMS_ITS | Encounter Summary ---
Author Organization [facility] Address [address] [place] [address] Care Team Providers Care Decal Applier Name Role Phone Tucker Bassett MD, Torsten Hatfield Primary Care Provider Encounter Details Date Type Department Care Team (Latest Contact Info) Description 11/12/2000 Outpatient Historical [facility] Goodman HART, Osman Ely MD [address] [place] [address] Contracture of tendon (Primary Dx) Social History Tobacco Use Types Packs/Day Years Used Date Smoking Tobacco: Never Assessed Comments Unknown Sex and Gender Information Value Date Recorded Sex Assigned at Not on file Legal Sex Female 3:46 AM LAND DEGRADATION ANALYST Gender Identity Not on file Sexual Orientation Not on file documented as of this encounter Plan of Treatment Not on file documented as of this encounter Visit Diagnoses Diagnosis Contracture of tendon- Primary Contracture of tendon (sheath) documented in this encounter Care Teams Decal Applier Relationship Specialty Start Date End Date Torsten Ceballos Jr., MD [address] [address] PCP - General 09/20/03 documented as of this encounter
--- OUTSIDE RECORDS SUMMARY | 2025-05-09 18:30 | XMS_ITS | Encounter Summary ---
Author Organization [employer] [facility] Address [address] [place] [address] Care Team Providers Care Lineman A Class Name Role Phone Tucker Bassett MD, Torsten Hatfield Primary Care Provider Encounter Details Date Type Department Care Team (Latest Contact Info) Description 04/08/2001 Outpatient Historical [facility] Goodman HART, Osman Ely MD [address] [place] [address] Contracture of tendon (Primary Dx); Paraplegia (CMS/HCC) Social History Tobacco Use Types Packs/Day Years Used Date Smoking Tobacco: Never Assessed Comments Unknown Sex and Gender Information Value Date Recorded Sex Assigned at Not on file Legal Sex Female 3:46 AM ENTEROSTOMAL THERAPY NURSE Gender Identity Not on file Sexual Orientation Not on file documented as of this encounter Plan of Treatment Not on file documented as of this encounter Visit Diagnoses Diagnosis Contracture of tendon- Primary Contracture of tendon (sheath) Paraplegia (CMS/HCC) Paraplegia documented in this encounter Care Teams Lineman A Class Relationship Specialty Start Date End Date Torsten Ceballos Jr., MD [address] [address] PCP - General 09/20/03 documented as of this encounter
--- OUTSIDE RECORDS SUMMARY | 2025-05-09 18:30 | XMS_ITS | Encounter Summary ---
Author Organization [employer] [facility] Address [address] [place] [address] Care Team Providers Care Collator Operator Name Role Phone Tucker Bassett MD, Torsten Hatfield Primary Care Provider Encounter Details Date Type Department Care Team (Latest Contact Info) Description 02/05/2001 Outpatient Historical [facility] Goodman HART, Osman Ely MD [address] [place] [address] Contracture of tendon (Primary Dx); Closed fracture of metatarsal bone(s); Paraplegia (CMS/HCC) Social History Tobacco Use Types Packs/Day Years Used Date Smoking Tobacco: Never Assessed Comments Unknown Sex and Gender Information Value Date Recorded Sex Assigned at Not on file 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
--- OUTSIDE RECORDS SUMMARY | 2025-05-09 18:30 | XMS_ITS | Encounter Summary ---
Author Organization [employer] [facility] Address [address] [place] [address] Care Team Providers Care Land Sales Agent Name Role Phone Tucker Bassett MD, Torsten Hatfield Primary Care Provider Encounter Details Date Type Department Care Team (Latest Contact Info) Description 10/24/2000 Outpatient Historical [facility] Goodman HART, Osman Ely MD [address] [place] [address] Contracture of tendon (Primary Dx); Paraplegia (CMS/HCC); Closed fracture of metatarsal bone(s); Nonunion of fracture Social History Tobacco Use Types Packs/Day Years Used Date Smoking Tobacco: Never Assessed Comments Unknown Sex and Gender Information Value Date Recorded Sex Assigned at Not on file 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
--- OUTSIDE RECORDS SUMMARY | 2025-05-09 18:30 | XMS_ITS | Encounter Summary ---
Author Organization [facility] Address [address] [place] [address] Care Team Providers Care Petroleum Geologist Name Role Phone Tucker Bassett MD, Torsten Hatfield Primary Care Provider Encounter Details Date Type Department Care Team (Late st Contact Info) Description 09/20/2003 Outpatient Historical [facility] [address] [place] [address] Social History Tobacco Use Types Packs/Day Years Used Date Smoking Tobacco: Never Assessed Comments Unknown Sex and Gender Information Value Date Recorded Sex Assigned at Not on file 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
--- OUTSIDE RECORDS SUMMARY | 2025-05-09 18:30 | XMS_ITS | Encounter Summary ---
Author Organization [facility] Address [address] [place] [address] Care Team Providers Care Outboard System Operator Name Role Phone Tucker Bassett MD, Torsten Hatfield Primary Care Provider Encounter Details Date Type Department Care Team (Late st Contact Info) Description 09/20/[address] 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
--- OUTSIDE RECORDS SUMMARY | 2025-05-09 18:30 | XMS_ITS | Encounter Summary ---
Author Organization [employer] [facility] Address [address] [place] [address] Care Team Providers Care Tail Board Worker Name Role Phone Tucker Bassett MD, Torsten Hatfield Primary Care Provider Encounter Details Date Type Department Care Team (Latest Contact Info) Description 05/01/2001 Outpatient Historical [facility] Goodman HART, Osman Ely MD [address] [place] [address] Contracture of tendon (Primary Dx); Paraplegia (CMS/HCC); Closed fracture of metatarsal bone(s) Social History Tobacco Use Types Packs/Day Years Used Date Smoking Tobacco: Never Assessed Comments Unknown Sex and Gender Information Value Date Recorded Sex Assigned at Not on file 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
--- OUTSIDE RECORDS SUMMARY | 2025-05-09 18:30 | XMS_ITS | Encounter Summary ---
Author Organization [facility] Address [address] Perez: [place] [address] Care Team Providers Care Stretching Machine Tender Frame Name Role Phone Tucker Bassett MD, Torsten Hatfield Primary Care Provider Encounter Details Date Type Department Care Team (Late st Contact Info) Description 12/11/2000 Outpatient Historical [facility], Osman Ely MD [address] [place] [address] Social History Tobacco Use Types Packs/Day Years Used Date Smoking Tobacco: Never Assessed Comments Unknown Sex and Gender Information Value Date Recorded Sex Assigned at Not on file 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
--- OUTSIDE RECORDS SUMMARY | 2025-05-09 18:30 | XMS_ITS | Encounter Summary ---
Author Organization [employer] [facility] Address [address] [place] [address] Care Team Providers Care Wool Spotter Name Role Phone Tucker Bassett MD, Torsten Hatfield Primary Care Provider Encounter Details Date Type Department Care Team (Latest Contact Info) Description 01/21/2001 Outpatient Historical [facility] Goodman HART, Osman Ely MD [address] [place] [address] Contracture of tendon (Primary Dx); Paraplegia (CMS/HCC); Closed fracture of metatarsal bone(s) Social History Tobacco Use Types Packs/Day Years Used Date Smoking Tobacco: Never Assessed Comments Unknown Sex and Gender Information Value Date Recorded Sex Assigned at Not on file Legal Sex Female 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
[2025-05-09 20:28] LABS: Glucose Urine UA Negative (Normal); Nitrate Urine Negative (Negative); Specific Gravity, Urine 1.021 (1.005-1.030)
== END 2025-05-09 23:46 | disposition left against medical advice (07) ==
PROVIDERS: Emergency Medicine; Emergency Provider Emergency Medicine; PCP Nurse Practitioner Family
DX: Z01.89 Encounter for other specified special examinations (principal); Z53.21 Procedure and treatment not carried out due to patient leaving prior to being seen by health care provider
CPT/HCPCS: 81001; 87086

== ENCOUNTER → 2025-05-11 18:31 | Outpatient (BNVA) | payer MEDICAID, SELFPAY | PROVIDERS: PCP Nurse Practitioner Family | DX: Z20.2 Contact with and (suspected) exposure to infections with a predominantly sexual mode of transmission (principal); R39.9 Unspecified symptoms and signs involving the genitourinary system | CPT/HCPCS: 81000; 87661 ==

== ENCOUNTER → 2025-05-12 10:21 | Outpatient (BNVA) | payer MEDICAID, SELFPAY | PROVIDERS: PCP Nurse Practitioner Family | DX: Z20.2 Contact with and (suspected) exposure to infections with a predominantly sexual mode of transmission (principal) | CPT/HCPCS: 87491; 87591 ==